=== PATIENT | male | born 1930 | race Caucasian/White ===

== ENCOUNTER 2016-06-21 13:16 | Emergency (ER) | payer MEDICARE, BC ==
[2016-06-21] MEDS ORDERED: SODIUM CHLORIDE 0.9% 1,000 ML IV ONE (16:11)
[2016-06-21] MEDS ORDERED: ACETAMINOPHEN 325 MG TABLET PO STA (16:14)
[2016-06-21] MEDS ORDERED: ACETAMINOPHEN 325 MG TABLET PO ONE (16:47)
[2016-06-21] MEDS ORDERED: KETOROLAC 30 MG/ML VIAL IVP STA (17:53)
[2016-06-21] MEDS ORDERED: AMOXICILLIN 250 MG CAPSULE PO STA (17:53)
[2016-06-21] MEDS ORDERED: AMOXICILLIN 250 MG CAPSULE PO ONE (18:02)
[2016-06-21] MEDS ORDERED: KETOROLAC 30 MG/ML VIAL ONE (18:02)
[2016-06-21] MEDS ORDERED: DEXAMETHASONE 10 MG/ML VIAL PO STA (19:20)
[2016-06-21] MEDS ORDERED: CHERRY SYRUP 10 ML UDC PO ONE (19:24)
[2016-06-21] MEDS ORDERED: DEXAMETHASONE 10 MG/ML VIAL ONE (19:24)
== END 2016-06-21 20:23 | disposition home or self-care (01) ==
DX: J11.1 Influenza due to unidentified influenza virus with other respiratory manifestations (principal)
CPT/HCPCS: 36415; 71020; 80053; 83690; 85025; 87275; 87276; 96374; 99284; A9270

== ENCOUNTER 2016-07-05 15:30 | Outpatient (CLI) | payer MEDICARE, BC | END 2016-07-05 15:31 | disposition home or self-care (01) | DX: F01.51 Vascular dementia, unspecified severity, with behavioral disturbance (principal); R53.83 Other fatigue; R05 Cough; F41.1 Generalized anxiety disorder; J20.9 Acute bronchitis, unspecified; R53.1 Weakness; F43.21 Adjustment disorder with depressed mood; K59.00 Constipation, unspecified; R35.0 Frequency of micturition; Z66 Do not resuscitate; Z51.5 Encounter for palliative care ==

== ENCOUNTER 2016-08-26 11:45 | Outpatient (CLI) | payer MEDICARE, BC | END 2016-08-26 11:46 | disposition home or self-care (01) | DX: F03.91 Unspecified dementia, unspecified severity, with behavioral disturbance (principal); K40.90 Unilateral inguinal hernia, without obstruction or gangrene, not specified as recurrent; B37.9 Candidiasis, unspecified; R35.0 Frequency of micturition; K59.00 Constipation, unspecified; R33.9 Retention of urine, unspecified; E53.9 Vitamin B deficiency, unspecified; G25.9 Extrapyramidal and movement disorder, unspecified; F41.9 Anxiety disorder, unspecified; R53.83 Other fatigue; R06.02 Shortness of breath; R25.1 Tremor, unspecified; Z66 Do not resuscitate; Z51.5 Encounter for palliative care ==

== ENCOUNTER 2016-09-30 11:15 | Outpatient (CLI) | payer MEDICARE, BC | END 2016-09-30 11:16 | disposition home or self-care (01) | DX: Z51.5 Encounter for palliative care (principal); B37.89 Other sites of candidiasis; F03.91 Unspecified dementia, unspecified severity, with behavioral disturbance; F43.21 Adjustment disorder with depressed mood; Z66 Do not resuscitate; H91.90 Unspecified hearing loss, unspecified ear; R05 Cough; E11.9 Type 2 diabetes mellitus without complications; I49.9 Cardiac arrhythmia, unspecified ==

== ENCOUNTER 2016-11-17 16:05 | Outpatient (CLI) | payer MEDICARE, BC | END 2016-11-17 16:06 | disposition home or self-care (01) | DX: R53.82 Chronic fatigue, unspecified (principal); D64.9 Anemia, unspecified; Z79.899 Other long term (current) drug therapy ==

== ENCOUNTER 2017-02-09 14:50 | Outpatient (CLI) | payer MEDICARE, BC ==
--- NOTE | 2017-02-09 21:51 | PROVIDER PROGRESS NOTE ---
Palliative Care Follow Up - Referral Referring Provider: Dr. Charly Stanley Time of Visit: Referral setting: [facility] [place] Referral Reason: Dementia - Information Sources History obtained from: Patient, Family ( Brittany Henry brought patient to visit ) Exam limitations: Clinical condition (patient continues with STM; recall though remains improved) - History of Present Illness Update Brief HPI Update: This is a delightful 86 year old man with colorful history of working in [employer], who has vascular dementia with behavioral disturbances, but has continued to improve. He still has anxiety, some intermittent confusion/STM issues, and perseverating behaviors but is currently managed fairly well on his medication regimen that we have pared back. He still is anxious about voidng and is aware it is "more in his head" and bowels which are moving regularly. They have an upcoming [facility] Cruise with a family reunion which is causing his anxiety to escalate some, but has insight into this. He actually has no recall of the turn of events late winter, but is grateful for his current quality of life. He does continue with balance issues, shuffling gait, and lower extremity weakness but has benefited greatly with physical therapy support. He is up to 166 today from a low of 140, I suspect impacted some by his medications, but appears healthy for as frail as he is with his multiple co-morbidities. Social History - Living Situation Living arrangement: At home (stays with wift Mon-), Other (Adult Family Home Mon-Mon) Living Situation: With spouse/s.o., With caregiver(s) Support System: has patient come home for a few days, does Time Together and able to manage with taking time off during the weekends; patient with supportive family , many visits over the summer Medications/Allergies - Medications Home Medications: Ambulatory Orders Medication Instructions Recorded Confirmed Clonazepam 0.25 mg PO BID 06/21/16 02/09/17 Mirtazapine 15 mg PO QPM 06/21/16 02/09/17 QUEtiapine [SEROquel] 12.5 mg PO QDLUNCH 06/21/16 02/09/17 QUEtiapine [SEROquel] 37.5 mg PO QPM 06/21/16 02/09/17 Tamsulosin [Flomax] 0.4 mg QPM 06/21/16 02/09/17 Cholecalciferol (Vitamin D3) 1,000 unit PO DAILY 02/09/17 02/09/17 [Vitamin D3] Cyanocobalamin (Vitamin B-12) 1,000 mcg IM ONCE 02/09/17 02/09/17 [Cyanocobalamin Injection] Omeprazole 20 mg PO BID 02/09/17 02/09/17 Polyethylene Glycol 3350 [Miralax] 17 gm PO DAILY 02/09/17 02/09/17 Sennosides [Senna Lax] 8.6 mg PO DAILY 02/09/17 02/09/17 - Allergies Allergies/Adverse Reactions: Allergies Allergy/AdvReac Type Severity Reaction Status Date / Time No Known Drug Allergies Allergy Verified 06/21/16 18:51 Review of Systems - Constitutional Constitutional: reports: Fatigue, Weight gain (166.8) - Eyes Eyes: reports: Vision loss, Corrective lenses - Ears, Nose & Throat Ears, Nose & Throat: reports: Hearing loss, Hearing aids, Other (recent tooth extraction) - Cardiovascular Cariovascular: reports: Irregular heart rate, Exertional dyspnea, Decr. exercise tolerance - Respiratory Respiratory: reports: SOB with exertion. denies: Cough - Gastrointestinal Gastrointestinal: reports: Reflux/heartburn. denies: Abdominal pain, Nausea, Vomiting - Genitourinary Genitourinary: reports: Frequency, Urgency (attributes most of it to anxiety; flomax had improved status), Nocturia, Other (has large inguinal hernia that causes discomfort about the size of a grapefruit) - Musculoskeletal Musculoskeletal: reports: Muscle weakness, Other (balance) - Integumentary Integumentary: reports: Other (intermittent rashes in groin secondary to hernia) - Neurological Neurological: reports: General weakness, Memory problems, Abnormal gait - Psychiatric Psychiatric: reports: Anxiety - Endocrine Endocrine: reports: Other (c/o fatigue; labs wnl, hx of DM diet controlled) - Hematologic/Lymphatic Hematologic/Lymphatic: reports: Anemia. denies: Recurrent infections - All Other Systems All Other Systems: reports: Reviewed and negative Physical Examination - Vital Signs Pulse Rate: 83 Respiratory Rate: 18 Blood Pressure: 134/81 - Physical Exam General Appearance: positive: Mild distress, Anxious Eyes Bilateral: positive: Normal inspection ENT: positive: Other (no signs swelling/abcess with tooth extraction) Neck: positive: Trachea midline Respiratory: positive: Breath sounds nml Cardiovascular: positive: Irregularly irregular, Systolic murmur Abdomen: positive: Non-tender, Nml bowel sounds, No distention Skin: positive: Rash (slight moist desquamation in right groin fold), Other ( two small skin tears on left hand, less than cm; had cut self on towel lincoln in bathroom; well cloted.) Extremities: positive: No pedal edema, Other (ambulates with walker; balance poor) Neurologic/Psychiatric: positive: Oriented x3, Other (very anxious; able to follow conversation; STM recall but conversant; no halllucinations; speaks in full sentences;) Palliative Care - POLST Patient has POLST: Yes POLST Status: DNR, Comfort Measures (Focus on quality of life, avoid hospitalization, and avoid unnecessary procedures) Pain: No pain Drowsiness: Mild (1-3) Nausea: Moderate (4-6) (calls it a "quesy stomach" better on omeprazole but related to anxiety) Anxiety: Moderate (4-6) Dyspnea: Mild (1-3) Anorexia: Mild (1-3) Insomnia: Sleeps well Constipation: No Feelings of wellbeing/Perceived Quality of Life: Worsening (dislikes being dependent and "old") Performance Status: Current level of functioning [Needs assistance with bathing, does when home , dependent on others for meal prep/transportation and meeting scheduling needs ; needs cuing for ambulation with walker]. Palliative Care Performance Status [ 60%]. - Palliative Care Discussion: Surrogate decision maker-Brittany Cha spouse [phone]. Patient doing pretty well overall, but has some escalating anxiety with upcoming family trip/ cruise. Remains frail but currently at a plateau. Does very much enjoy his time at home, but Brittany Henry has done nice job of balancing time off with [facility] and George is resigned to this. Patient with many underlying co-morbidities (dementia , CAD, atrial fib, hx of CVA, DM2, asthma, post polio syndrome, spinal stenosis , asthma) that can impact his prognosis, but stable. He recently tolerated a tooth extraction well. POLST in place, goals are clear, current quality of life acceptable but most likely not if decline either physically or cognitively. Impression and Recommendations - Palliative Care Impression: This is a 86 year old gentleman with vascular dementia with behavioral disturbances who is doing fairly well on his current regimen, noted escalation of anxiety with pending trip. Caregiving situation currently stable, and continuing to benefit from physical therapy services. Both patient and aware of frailty of situation, are enjoying current quality of life and trying to make the best of situation. Recommendations/Counseling Done: 1. Skin tear from acute trauma left hand. Two small less than 1 cm area tears, cleansed with normal saline and telph pad applied. 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 on s/s infection to contact PCP or myself. 2. Dementia with behavioral disturbances, current regimen pared back, both satisfied with current level of relief. Patient with some increase in anxiety attributed to change in routine, patient with some insight of this. Counseling for normalizing current feelings of distress and ways to refocus and mitigate. No medication changes needed; medications reviewed with and patient. 3. Difficulty walking, patient with balance issues, post polio syndrome, spinal stenosis and generalized weakness will continue to benefit from weekly PT visit for addressing strengthening and risk for falls. Rx to [facility] to [facility]. 4. Fatigue, multifactorial in origin. B12 shot given without problems. 5. Advanced Care Planning, POLST in place, goals defined. Enjoying current status though less difficult to accept limitations at 86, both aware of fragile status but attempting to take it day at a time. Has trip planned for fall with family reunion. Time Spent: Time spent 45 minutes with greater than 50% done in counseling for anxiety and coordination of care with referral to PT.
== END 2017-02-09 14:51 | disposition home or self-care (01) ==
LOC: PC 14:50
PROVIDERS: ATTEND Nurse Practitioner Adult Health
DX: Z51.5 Encounter for palliative care (principal); S61.412A Laceration without foreign body of left hand, initial encounter; F01.51 Vascular dementia, unspecified severity, with behavioral disturbance; G14 Postpolio syndrome; M48.00 Spinal stenosis, site unspecified; M62.81 Muscle weakness (generalized); R53.83 Other fatigue; F41.9 Anxiety disorder, unspecified; R41.0 Disorientation, unspecified; R26.89 Other abnormalities of gait and mobility; R63.5 Abnormal weight gain; R12 Heartburn; R35.0 Frequency of micturition; R39.15 Urgency of urination; R35.1 Nocturia; D64.9 Anemia, unspecified; R11.0 Nausea; R41.3 Other amnesia; Z66 Do not resuscitate; I25.10 Atherosclerotic heart disease of native coronary artery without angina pectoris; I48.91 Unspecified atrial fibrillation; E11.9 Type 2 diabetes mellitus without complications; J45.909 Unspecified asthma, uncomplicated
CPT/HCPCS: 99215

== ENCOUNTER 2017-05-22 14:00 | Outpatient (CLI) | payer MEDICARE, BC ==
--- NOTE | 2017-05-22 20:32 | CONSULTATION NOTE ---
Palliative Care Follow Up - Referral Referring Provider: Dr. Charly Stanley Time of Visit: [id number] Referral setting: Adult Family Home (It is a taxing and considerable effort for the patient to leave the home, patient is seen in his home setting in adult family home.) Referral Reason: Anxiety/abdominal pain - Information Sources History/Review of Systems obtained from: Patient, Family ( Brittany Henry joined us for visit) Exam limitations: Clinical condition (Patient was short-term memory deficits, ROS supplemented by and adult family home caregiver.) - History of Present Illness Update Brief HPI Update: This is a delightful 86-year-old gentleman with vascular dementia with history of behavioral disturbances. His current neuropsychiatric symptoms include mostly anxiety, negative for aggression, hallucinations, or delusions at this point in time. He is complaining over the last few weeks of increased abdominal pain. This is vague in nature, abdominal exam somewhat nondescript, does have some tenderness with deep palpation across the upper abdomen, no masses felt but there is some firmness and discomfort. This is not persistent, is not worsening are improved with eating. Did switch from ranitidine to omeprazole a couple days ago and has no improvement so far. Nausea appears to be related to anxiety not necessarily on awakening pain. Denies history of ulcers, does report though patient has known positive stools, and has not had a workup. Patient has had no weight loss, his most other pressing symptom of complaint is fatigue, needing to paces activity more, feels weaker when ambulating, is taking more frequent naps. Social History - Living Situation Living arrangement: Adult family home Living Situation: With caregiver(s) Support System: Brittany Henry oversees patient's care. Medications/Allergies - Medications Home Medications: Ambulatory Orders Medication Instructions Recorded Confirmed Mirtazapine 15 mg PO QPM 06/21/16 05/22/17 QUEtiapine [SEROquel] 25 mg PO QPM 06/21/16 05/22/17 Tamsulosin [Flomax] 0.4 mg QPM 06/21/16 05/22/17 clonazePAM [Clonazepam] 0.25 mg PO DAILY PM 06/21/16 05/22/17 Cholecalciferol (Vitamin D3) 1,000 unit PO DAILY 02/09/17 05/22/17 [Vitamin D3] Cyanocobalamin (Vitamin B-12) 1,000 mcg IM ONCE 02/09/17 05/22/17 [Cyanocobalamin Injection] Polyethylene Glycol 3350 [Miralax] 8.5 gm PO DAILY 02/09/17 05/22/17 Omeprazole [PriLOSEC] 20 mg PO BID 05/22/17 05/22/17 - Allergies Allergies/Adverse Reactions: Allergies Allergy/AdvReac Type Severity Reaction Status Date / Time No Known Drug Allergies Allergy Verified 06/21/16 18:51 Review of Systems - Constitutional Constitutional: reports: Fatigue (worsening; tired all the time), Weight stable (166) - Eyes Eyes: reports: Vision loss, Corrective lenses - Ears, Nose & Throat Ears, Nose & Throat: reports: Hearing loss, Dental decay (dental work) - Cardiovascular Cardiovascular: reports: Irregular heart rate. denies: Palpitations, Chest pain , Decr. exercise tolerance - Respiratory Respiratory: reports: SOB with exertion. denies: Cough, SOB at rest - Gastrointestinal Gastrointestinal: reports: Abdominal pain (worsening; difficult to discern if on awakening or when anxiety "kicks" in; report abdominal pain across abdomen; denies "heartburn" or chest pain; no worse with eats or empty stomach; does not have pain that awakends at night), Nausea (on awakening; no vomiting or dry heaves; consistent for over a month; started omeprazole vs ranitidine Monday without improvement yet), Good appetite - Genitourinary Genitourinary: reports: Frequency, Urgency, Other (feels emptying bladder; able to sleep through most the night without getting up most nights; anxious through the day and constantly in bathroom; aware "fixates") - Musculoskeletal Musculoskeletal: reports: Muscle weakness, Assistive devices (uses front wheeled walker; PT one time a week; has started peddlar) - Integumentary Integumentary: reports: Dryness, Other (groin rash) - Neurological Neurological: reports: General weakness, Memory problems (STM; talks in full sentences; difficulty following more complex conversations; able to do social conversation) - Psychiatric Psychiatric: reports: Depression (sadness at current situation; worries about and misses ), Anxiety (Patient gets perseverated particular around urinating and bowels, reports this is been life long pattern that has been intensified with recent health decline and memory problems. Reports just feels shaky and unsteady in side, can be redirected and distracted. Does not awaken confused) - Endocrine Endocrine: reports: Diabetes type 2 (recent labs show no s/s of poor control), Intolerance to cold - Hematologic/Lymphatic Hematologic/Lymphatic: reports: Anemia (Known "slow leak" with past positive stool cards. Agreement and past was made not to work it up secondary to patient most likely unable to tolerate surgery.). denies: Recurrent infections - All Other Systems All Other Systems: reports: Reviewed and negative Physical Exam - Vital Signs Temperature: 97.7 C Pulse Rate: 95 Respiratory Rate: 18 O2 Saturation: 95 (ra @ rest) Blood Pressure: 112/72 - Physical Exam General Appearance: positive: Mild distress, Anxious Eyes Bilateral: positive: Normal inspection ENT: positive: Pharynx nml, No signs of dehydration Neck: positive: No JVD, Trachea midline Cardiovascular: positive: Irregular Respiratory: positive: Breath sounds nml Abdomen: positive: Soft, Nml bowel sounds, Tenderness (Patient with tenderness to deep palpation in right upper and left upper quadrant. No guarding or rebound tenderness, some firmness but no mass felt. Patient does have a significant inguinal hernia hangs down about the size of small melon. Is uncomfortable for him and does cause some skin problems in his groin.) Skin: positive: Pallor, Dryness, Rash (right groin area) Extremities: positive: No pedal edema Neurologic/Psychiatric: positive: Oriented x3, Depressed mood/affect Palliative Care - POLST Patient has POLST: Yes POLST Status: DNR, Comfort Measures Pain: Pain worsening, Location (upper abdominal pain; intermittent in pattern, worse in am on awakening accompanied by nausea and anxiety) Tiredness/Fatigue: Moderate (4-6) (feels worsening though denies dizzyness; headache; or increase in the baseline shortness of breath with activity) Drowsiness/Sedation: None Nausea: Mild (1-3) Depression: Mild (1-3) Anxiety: Moderate (4-6) Anorexia: None Sleep: Variable sleep pattern Constipation: Yes, Managed (currently managed wtih miralax 1/2 capful daily) Feelings of wellbeing/Perceived Quality of Life: Fair, Acceptable Performance Status: Patient does need assistance with bathing, for safety as well as assistance. Is using his 4 wheeled walker to ambulate around adult family home. Meals are prepared for him, is able to self feed. He is able to make his needs known. Does have increased fatigue and decreased activity tolerance. I would put him at a palliative care performance status at 60% - Palliative Care Discussion: Much of our discussion today as far as goals of care and quality of life were focused on his increased distress with his abdominal pain and anxiety. Both patient and aware of his fragile status, at this point would like to start with conservative measures. Impression and Recommendations - Palliative Care Impression: This is an 86-year-old gentleman with multiple comorbidities and status of frailty. He does present today with increasing abdominal pain and symptoms, though not specific in nature, and without acute distress. Patient also continues to struggle with anxiety, depressive symptoms, and fatigue.Goals of care remain to focus on conservative measures as possible, patient has done quite well given his health status over a year ago, the are both aware he is still fragile and at risk for further health changes and complications. Recommendations/Counseling Done: 1. Fatigue, most likely multifactorial in origin. Will obtain CBC with differential to measure current status. Vitamin B12 shot was given today. Will decrease Seroquel secondary to behavioral disturbances symptoms have improved greatly, will watch though for increased signs of anxiety or sundowners. Seroquel now at 25 mg at at bedtime only. 2. Abdominal pain. Difficult to discern if this is GERD symptoms are related to his anxiety. Did switch from ranitidine and 50 mg twice daily to omeprazole 20 mg twice daily, somewhat too soon to see if this is going to be effective. Discussion both with patient and regarding referral for endoscopy or further workup, would like to try conservative measures first. Bowels are moving on a regular basis, is taking bowel meds consistently, is more upper abdominal than substernal in nature. 3. Anxiety, again multifactorial in origin. Currently only taking the clonazepam half tablet at bedtime. This does appear to be adequate along with his mirtazapine 15 mg. He does have depressive symptoms, but can relate these to his situational depression, does enjoy his visits with his and going out to lunch and distractions. Will evaluate response to decreased Seroquel as well. 4. Dementia with behavioral disturbances. Patient does appear to be doing much better as far as any neuropsychiatric symptoms, though he is short-term memory issues no further hallucinations delusions or wandering and her agitation. 5. Advanced care planning. In weighing further workup for abdominal pain and symptoms, agreement to start with conservative approach, knowing can if have any acute changes are would like for the referral this is an option. MAK ST in place, goals of care remain continue to focus on comfort and maximizing independence as much as possible. Time Spent: Time spent 45 minutes with good 50% of this done in counseling weighing benefits and burdens of further follow-up and approach to workup with abdominal pain, counseling for depression anxiety, and anticipatory guidance
== END 2017-05-22 14:01 | disposition home or self-care (01) ==
LOC: PC 14:00
PROVIDERS: ATTEND Nurse Practitioner Adult Health
DX: Z51.5 Encounter for palliative care (principal); R10.9 Unspecified abdominal pain; F41.9 Anxiety disorder, unspecified; F01.51 Vascular dementia, unspecified severity, with behavioral disturbance; F32.9 Major depressive disorder, single episode, unspecified; R11.0 Nausea; R06.09 Other forms of dyspnea; M62.81 Muscle weakness (generalized); E11.9 Type 2 diabetes mellitus without complications; Z66 Do not resuscitate

== ENCOUNTER 2017-05-23 14:21 | Outpatient (CLI) | payer MEDICARE, BC ==
[2017-05-23 17:39] LABS: BASOPHILS % (AUTO) 0.8 %; EOSINOPHILS # (AUTO) 0.1 10^3/uL (0.0-0.7); EOSINOPHILS % (AUTO) 1.7 %; HCT - HEMATOCRIT 48.1 % (42.0-52.0); HGB - HEMOGLOBIN 15.9 g/dL (14.0-18.0); LYMPHOCYTES # (AUTO) 1.1 10^3/uL (1.5-3.5); LYMPHOCYTES % (AUTO) 16.7 %; MEAN CORPUSCULAR HEMOGLOBIN 31.8 pg (27.0-31.0); MEAN CORPUSCULAR HGB CONC 33.1 g/dL (32.0-36.0); MEAN CORPUSCULAR VOLUME 96.1 fL (80.0-94.0); MEAN PLATELET VOLUME 8.5 fL (7.4-11.4); MONOCYTES # (AUTO) 0.5 10^3/uL (0.0-1.0); NEUTROPHILS # (AUTO) 4.7 10^3/uL (1.5-6.6); NEUTROPHILS % (AUTO) 72.8 %; NUCLEATED RED BLOOD CELLS AUTO 0.1 /100WBC; RED BLOOD COUNT 5.01 10^6/uL (4.70-6.10); RED CELL DISTRIBUTION WIDTH 13.7 % (12.0-15.0); UNCORRECTED WHITE BLOOD COUNT 6.4 x10^3/uL; WHITE BLOOD COUNT 6.4 x10^3/uL (4.8-10.8)
== END 2017-05-23 14:22 | disposition home or self-care (01) ==
LOC: LAB.F 14:21
PROVIDERS: ATTEND Nurse Practitioner Adult Health
DX: D64.9 Anemia, unspecified (principal)
CPT/HCPCS: 36415; 85025

== ENCOUNTER 2017-06-26 17:42 | Outpatient (CLI) | payer MEDICARE, BC ==
--- NOTE | 2017-06-26 18:24 | CONSULTATION NOTE ---
Palliative Care Follow Up - Referral Referring Provider: Dr. Charly Stanley Time of Visit: 5794-8117 Referral setting: Adult Family Home Referral Reason: Anxiety/Depression - Information Sources History/Review of Systems obtained from: Patient, Caregiver (Awilda caregiver, [facility]) Exam limitations: Clinical condition (patient with short term memory issues; high anxiety with out of town) - History of Present Illness Update Brief HPI Update: This is an anxious 86-year-old gentleman with vascular dementia and history of behavioral disturbances. He has felt poorly over the last month with increased nausea without vomiting, increased anxiety that gets translated into his perseverating on frequently going back and forth to the bathroom, he denies any difficulty emptying his bladder or urgency or dysuria. He is just always worried that he is not going to get there. He does admit this is "all in his head. He feels the abdominal discomfort which is a band across his upper abdomen is related to his anxiety, we have much switched up his medications omeprazole twice daily though has not made much difference. His bowels are moving without difficulty. His anxiety currently is escalated as his is out of town for 2 weeks he has felt more weak, though is still able to ambulate short distances. He does have upper extremity tremors these fluctuate in intensity increasing with anxiety. He can be easily redirected and distracted and able to converse in full sentences. He only presents with short-term memory at this point in time. He has had no weight loss I do not have an accurate current weight. I did do labs his last visit, and there were no unusual or concerning findings. Social History - Living Situation Living arrangement: Adult family home Support System: His Brittany Henry provides oversight for his medical care as well as significant amount of visiting and psychosocial support. She does try to arrange activities and things that would be distracting for patient, so as he has had increased fatigue this is been more difficult Medications/Allergies - Medications Home Medications: Ambulatory Orders Medication Instructions Recorded Confirmed Mirtazapine 22.5 mg PO QPM 06/21/16 06/26/17 QUEtiapine [SEROquel] 25 mg PO QPM 06/21/16 06/26/17 Tamsulosin [Flomax] 0.4 mg QPM 06/21/16 06/26/17 clonazePAM [Clonazepam] 0.25 mg PO 12 06/21/16 06/26/17 Cholecalciferol (Vitamin D3) 1,000 unit PO DAILY 02/09/17 06/26/17 [Vitamin D3] Cyanocobalamin (Vitamin B-12) 1,000 mcg IM ONCE 02/09/17 06/26/17 [Cyanocobalamin Injection] Polyethylene Glycol 3350 [Miralax] 8.5 gm PO DAILY 02/09/17 06/26/17 Omeprazole [PriLOSEC] 20 mg PO BID 05/22/17 06/26/17 Ondansetron HCl [Zofran] 4 mg PO Q8HR PRN 06/26/17 06/26/17 clonazePAM [Clonazepam] 0.5 mg PO 2100 06/26/17 06/26/17 - Allergies Allergies/Adverse Reactions: Allergies Allergy/AdvReac Type Severity Reaction Status Date / Time No Known Drug Allergies Allergy Verified 06/21/16 18:51 Review of Systems - Constitutional Constitutional: reports: Fatigue, Weight stable - Eyes Eyes: reports: Vision loss, Corrective lenses - Ears, Nose & Throat Ears, Nose & Throat: reports: Hearing loss, Dry mouth - Cardiovascular Cardiovascular: reports: Irregular heart rate, Decr. exercise tolerance. denies : Chest pain - Respiratory Respiratory: reports: SOB with exertion - Gastrointestinal Gastrointestinal: reports: Abdominal pain, Nausea, Good appetite. denies: Vomiting - Genitourinary Genitourinary: reports: Frequency, Urgency - Musculoskeletal Musculoskeletal: reports: Back pain (new but spending more time in bed), Stiffness, Muscle weakness, Assistive devices (uses four wheeled walker) - Integumentary Integumentary: reports: Rash (right groin), Dryness - Neurological Neurological: reports: General weakness, Memory problems - Psychiatric Psychiatric: reports: Depression, Anxiety (worsening with gone; describes anxiety focused on needing to use the bathroom "not rationale" but exacerbates upper abdominal discomfort and causes nausea though eats and no vomiting), Behavior disturbances - Endocrine Endocrine: reports: Diabetes type 2 - Hematologic/Lymphatic Hematologic/Lymphatic: denies: Recurrent infections - All Other Systems All Other Systems: reports: Reviewed and negative Physical Exam - Vital Signs Temperature: 98.3 C Pulse Rate: 72 Respiratory Rate: 18 O2 Saturation: 94 (ra @ rest) Blood Pressure: 108/64 - Physical Exam General Appearance: positive: Moderate distress, Anxious Eyes Bilateral: positive: Normal inspection ENT: positive: No signs of dehydration Neck: positive: No JVD, Trachea midline Cardiovascular: positive: Irregular Respiratory: positive: Breath sounds nml Abdomen: positive: Non-tender, Soft, Nml bowel sounds Skin: positive: Pallor, Dryness Extremities: positive: No pedal edema, Other (upper extremity tremors right greater than left) Neurologic/Psychiatric: positive: Disoriented to time, Depressed mood/affect Palliative Care - POLST Patient has POLST: Yes POLST Status: DNR, Comfort Measures Pain: Location (abdominal pain "band across" upper abdomen flucutates- attributes to worsening with anxiety; CG observes worse with some foods; new back pain has been in bed more but tolerable) Tiredness/Fatigue: Moderate (4-6) Drowsiness/Sedation: Mild (1-3) Nausea: Moderate (4-6) (no vomiting) Depression: Moderate (4-6) (reports tearful and feels worsening; attributes to "aging" and not accepting of his decline) Anxiety: Severe (7-10) Dyspnea: Mild (1-3) Anorexia: None Sleep: Variable sleep pattern (Reports perseverates about falling asleep, gets distressed if he awakens though does feel like he gets an adequate number of hours. He worries about needing to go to the bathroom when he is sleeping and gets up often quickly out of bed, is using walker) Constipation: Yes, Managed Feelings of wellbeing/Perceived Quality of Life: Poor, Worsening Performance Status: Patient does require assistance with dressing, he is able to self-feed though he is somewhat tremulous and needs some assistance with cutting his food. He does receive assistance with bathing. He can ambulate short distances with his walker though does need assistance sometimes from getting out of bed to standing. I put him at a palliative care performance status between 40 and 50% - Palliative Care Discussion: Patient has lived a long and colorful life, he does miss being younger and vibrant. He is very "disgusted" with being dependent, he does worry about being a burden to Brittany Henry. He worries constantly that she is going to before him, though reassured with her younger age and she is taking care of herself the this is most likely not true. He is very anxious with her currently gone on the trip. She does call every day. Is hoping one day he just does not wake up, he is not looking forward to "the dying process". He does get bored stiff. He has somewhat resigned to the current arrangement, knowing that Brittany Henry needs to take care of herself as well. Results - Lab Results Lab results reviewed: Yes Impression and Recommendations - Palliative Care Impression: This is an 86-year-old gentleman with multiple core morbidities and fragility of advanced age. He presents with high anxiety exacerbated by his currently being on a trip. He continues to have increased abdominal pain and discomfort though not acute in nature, not worsening or improving. Goals of care remain to focus on conservative measures, and continue to weigh the benefits and burdens of any further interventions. Recommendations/Counseling Done: 1. Fatigue most likely multifactorial in origin. No anemia worsening with previous CBC, vitamin B12 shot was given today. Seroquel was decreased so has not noticed any changes with this. Encouraged to return to activities as tolerated, I suspect some of this is attributed to his isolation and ongoing anxiety as well as his advancing age. 2 abdominal pain. Continues to remain somewhat ambiguous. Discussed with patient next step would be follow-up with his surgeon, possible scope. He reports that is more anxiety producing and then would be of benefit. Does have intermittent nausea with this, reports has used ondansetron in the past without any help but willing to try again for when it escalates. Particularly in the adult family home setting for a tool to use with patient. Will also look at diet modifications including discontinuing trial mix at bedtime, encouraged to use more easily digestible things like saltines R Ritz crackers at bedside as well as cooked applesauce versus fresh apples right before he goes to bed. 3. Depression. Will go ahead and try try dictating up his mirtazapine 15 mg to 1 and half tabs at bedtime to see if this helps both with his anxiety and depressive symptoms. Counseling done to normalize his normal feelings of grief and loss given his advanced age and multiple losses. 4. Dementia with behavioral disturbances. Patient does appear doing much better as far as his neuropsychiatric symptoms of his anxiety has exacerbated. Had added back half tab of clonazepam 0.5 mg mid day during this time that his is gone, unclear if this is of benefit. #5 advanced care planning. MAK ST in place goals of care remain to continue focus on comfort and maximizing independence for as long as possible. At this point in time no further workup is requested, and continue to weigh benefits and burdens of interventions or assessment measures. Time Spent: 45 minutes with greater than 50% of this done in counseling and coordination of care with adult family home zipper machine operator as well as follow-up in with who is traveling. Medication ordered ondansetron 4 mg 1 tab every 8 hours as needed as well as increasing bedtime mirtazapine to 1-1/2 tabs which would be 22.5 mg
== END 2017-06-26 17:43 | disposition home or self-care (01) ==
LOC: PC 17:42
PROVIDERS: ATTEND Nurse Practitioner Adult Health
DX: Z51.5 Encounter for palliative care (principal); R53.83 Other fatigue; R10.9 Unspecified abdominal pain; F32.9 Major depressive disorder, single episode, unspecified; F01.51 Vascular dementia, unspecified severity, with behavioral disturbance; F41.9 Anxiety disorder, unspecified; M62.81 Muscle weakness (generalized); E11.9 Type 2 diabetes mellitus without complications; Z66 Do not resuscitate

== ENCOUNTER 2017-08-07 14:00 | Outpatient (CLI) | payer MEDICARE, BC ==
--- NOTE | 2017-08-07 18:23 | CONSULTATION NOTE ---
Palliative Care Follow Up - Referral Referring Provider: Dr. Charly Stanley Time of Visit: 5968-4568 Referral setting: Adult Family Home Referral Reason: Bronchitis - Information Sources Records reviewed: Previous records reviewed History/Review of Systems obtained from: Patient, Family (Brittany Henry not at visit, but did provide information per phone; son Charly present for visit) Exam limitations: Clinical condition (STM issues) - History of Present Illness Update Brief HPI Update: This is an anxious 86-year-old gentleman with vascular dementia and a history of behavioral disturbances, he actually presents with only moderate neuro cognitive decline. He has had symptoms originally of a viral illness on 07/11, for which he was symptomatically treated and slowly improved. He then had an exacerbation, with severe cough, elevated temperature, and significant fatigue. This was on 08/02, in discussion with on weighing benefits and burdens of further workup, agreement was to go ahead and treat, he did complete a Z-Dionicio, with improvement of symptoms. Am seeing him today in follow-up, he is afebrile , his breath sounds are diminished in the bases, but no rales rhonchi or crackles. His O2 sats are 94%. His cough is dry and minimized at this point. His only residual symptom is his perception of fairly significant fatigue. But he is able to walk back and forth to the bathroom, is eating and drinking his normal amounts, and appears to be recovering. His herself, is feeling poorly, and this increases his anxiety significantly. He does worry about her, and if something were to happen to her, what would happen to him. Social History - Living Situation Living arrangement: Adult family home Support System: Brittany Henry oversees patient's medical care, arranges for several activities including time together, and PT appointments. These are currently on hold until he is recovered from his bronchitis. Medications/Allergies - Medications Home Medications: Ambulatory Orders Medication Instructions Recorded Confirmed Mirtazapine 22.5 mg PO QPM 06/21/08/07/17 QUEtiapine [SEROquel] 25 mg PO QPM 06/21/16 08/07/17 Tamsulosin [Flomax] 0.4 mg QPM 06/21/16 08/07/17 clonazePAM [Clonazepam] 0.25 mg PO 12 06/21/16 08/07/17 Cholecalciferol (Vitamin D3) 1,000 unit PO DAILY 02/09/17 08/07/17 [Vitamin D3] Cyanocobalamin (Vitamin B-12) 1,000 mcg IM ONCE 02/09/17 08/07/17 [Cyanocobalamin Injection] Polyethylene Glycol 3350 [Miralax] 8.5 gm PO DAILY 02/09/17 08/07/17 Omeprazole [PriLOSEC] 20 mg PO BID 05/22/17 08/07/17 Ondansetron HCl [Zofran] 4 mg PO Q8HR PRN 06/26/17 08/07/17 clonazePAM [Clonazepam] 0.5 mg PO 2100 06/26/17 08/07/17 Nystatin [Nystop] 1 applic TOP DAILY 08/07/17 08/07/17 - Allergies Allergies/Adverse Reactions: Allergies Allergy/AdvReac Type Severity Reaction Status Date / Time No Known Drug Allergies Allergy Verified 06/21/16 18:51 Review of Systems - Constitutional Constitutional: reports: Fatigue (reports has continued; most problematic), Weakness. denies: Fever, Night sweats - Eyes Eyes: reports: Vision loss, Corrective lenses - Ears, Nose & Throat Ears, Nose & Throat: reports: Hearing loss, Dental pain (recent root canal still bothersome) - Cardiovascular Cardiovascular: reports: Irregular heart rate, Decr. exercise tolerance - Respiratory Respiratory: reports: Cough (dry and improved), SOB with exertion - Gastrointestinal Gastrointestinal: reports: Good appetite. denies: Nausea, Reflux/heartburn - Genitourinary Genitourinary: reports: Frequency, Urgency - Musculoskeletal Musculoskeletal: reports: Stiffness, Muscle weakness, Assistive devices (uses walker) - Integumentary Integumentary: reports: Rash (right groin; large inguinal hernia "rubs"), Dryness - Neurological Neurological: reports: General weakness, Memory problems (STM) - Psychiatric Psychiatric: reports: Depression (reports improved), Anxiety. denies: Aggitation, Behavior disturbances - Endocrine Endocrine: reports: Diabetes type 2 (controlled with diet) - Hematologic/Lymphatic Hematologic/Lymphatic: reports: Recurrent infections (recent bronchitis) - All Other Systems All Other Systems: reports: Reviewed and negative Physical Exam - Vital Signs Temperature: 98.7 C Pulse Rate: 72 Respiratory Rate: 18 O2 Saturation: 94 (ra @ rest) Blood Pressure: 122/74 - Physical Exam General Appearance: positive: No acute distress, Anxious Eyes Bilateral: positive: Normal inspection ENT: positive: No signs of dehydration Neck: positive: No JVD, Trachea midline Cardiovascular: positive: Irregular, Systolic murmur Respiratory: positive: Diminished in bases (right lower lobe). negative: Wheezes, Rales, Rhonchi Abdomen: positive: Non-tender, Soft, Nml bowel sounds Skin: positive: Rash (moist desquamation and redness in groin folds; large inguinal hernia rubs to right) Extremities: positive: No pedal edema Neurologic/Psychiatric: positive: Oriented x3, Mood/affect nml Palliative Care - POLST Patient has POLST: Yes POLST Status: DNR, Comfort Measures Pain: Pain unchanged, Location (some lower back discomfort; intermittent and no change) Tiredness/Fatigue: Severe (7-10) Drowsiness/Sedation: Mild (1-3) Nausea: None Depression: Mild (1-3) Anxiety: Moderate (4-6) (very anxious about 's recent health issues;) Dyspnea: Mild (1-3) Anorexia: None Sleep: Sleeps well, Sleep improved Constipation: Managed (worries about it constantly) Feelings of wellbeing/Perceived Quality of Life: Good, Acceptable Performance Status: Patient reports increased fatigue, is able to walk back and forth to the bathroom, still needs assistance with bathing, dressing, and oversight for safety. - Palliative Care Discussion: Discussion focused on the normal course of recovery from his current illness, addressing his concerns regarding his anxiety about his , and reassurance given. Patient does have depressive symptoms regarding his current health status, and separation from his , he is enjoying his visit from his son Charly , who comes infrequently but does visit from [place]. Information provided to son regarding palliative care services and goals of care Impression and Recommendations - Palliative Care Impression: This is an 86-year-old gentleman with multiple comorbidities and the fragility of advanced age, with recent viral illness that progressed into bronchitis. He currently is improving, does not present with any acute symptoms of concern, continues to struggle with anxiety but reports depressive symptoms have improved. Goals of care remain to focus on conservative measures, and continue to weigh benefits and burdens as problems present themselves. Recommendations/Counseling Done: 1. Bronchitis. Patient does appear to have good response to azithromycin, he finished his last dose yesterday. Encouraged increase fluid intake, and pacing himself as recovers from fatigue. Counseling regarding normal course of recovery secondary to patient's anxiety, patient reports he does understand and understands he needs to be "patient". 2. Depression. Patient does appear to respond to the increase in mirtazapine, he is feeling less depressive feelings, his anxiety is exacerbated by his ' s recent illness, but overall notes improvement. 3. Fatigue, again most likely multifactorial in origin. Vitamin B12 shot was given today. Encouraged to return to normal activities in 2-3 weeks but pace self slowly. 4. Dementia with behavioral disturbances. Patient only presents with anxiety no other neuropsychiatric symptoms. No medication adjustments needed. 5. Advanced care planning. MAK ST remains in place, goals of care remain to continue focus on comfort and maximizing independence as long as possible. Counseling to son regarding palliative care support. 6. Candidiasis in groin folds. Instructed caregivers to reinitiate Nystop powder to areas of moist desquamation. Thank you Dr. Stanley for asking the palliative care consult service to be involved in the care of your patient will continue to provide support in response to symptoms and concerns as they present themselves. Time Spent: 45 minutes with greater than 50% of this done in counseling and coordination of care with adult family home, follow-up regarding bronchitis, and evaluation of response to increase antidepressant
== END 2017-08-07 14:01 | disposition home or self-care (01) ==
LOC: PC 14:00
PROVIDERS: ATTEND Nurse Practitioner Adult Health
DX: Z51.5 Encounter for palliative care (principal); J40 Bronchitis, not specified as acute or chronic; F32.9 Major depressive disorder, single episode, unspecified; R53.83 Other fatigue; F01.51 Vascular dementia, unspecified severity, with behavioral disturbance; B37.2 Candidiasis of skin and nail; M62.81 Muscle weakness (generalized); F41.9 Anxiety disorder, unspecified; E11.9 Type 2 diabetes mellitus without complications; M54.5 Low back pain; Z66 Do not resuscitate

== ENCOUNTER 2017-10-04 14:56 | Outpatient (CLI) | payer MEDICARE, BC ==
--- NOTE | 2017-10-04 17:35 | CONSULTATION NOTE ---
Palliative Care Follow Up - Referral Referring Provider: Dr. Charly Stanley Time of Visit: [id number] Referral setting: [facility] – [place] Referral Reason: Fatigue/General Anxiety Disorder - Information Sources Records reviewed: Previous records reviewed History/Review of Systems obtained from: Patient, Family ( Brittany Henry present for visit) Exam limitations: Clinical condition (patient anxious; STM issues) - History of Present Illness Update Brief HPI Update: Is an anxious 87-year-old gentleman with vascular dementia, with a history of behavioral disturbances, his most significant impactful neuropsychiatric behavior is his ongoing anxiety, and perseveration on needing to void. He has had continued general decline, most of this is with functional, is actually improved cognitively. Is demonstrated most with activity tolerance, needing more frequent rest periods, but is tolerable. He does need assistance with most ADLs, but is ambulatory with his walker. Has had no falls, no infections since bronchitis in July, and no weight loss. Social History - Living Situation Living arrangement: Adult family home Support System: His Brittany Henry oversees his care, continues to provide activities as well as support to break up his routine, and decrease his isolation. Remains at [facility] Medications/Allergies - Medications Home Medications: Ambulatory Orders Medication Instructions Recorded Confirmed Mirtazapine 22.5 mg PO QPM 06/21/16 10/04/17 QUEtiapine [SEROquel] 25 mg PO QPM 06/21/16 10/04/17 Tamsulosin [Flomax] 0.4 mg QPM 06/21/16 10/04/17 clonazePAM [Clonazepam] 0.25 mg PO 12 06/21/16 10/04/17 Cholecalciferol (Vitamin D3) 1,000 unit PO DAILY 02/09/17 10/04/17 [Vitamin D3] Cyanocobalamin (Vitamin B-12) 1,000 mcg IM .MONTHLY 02/09/17 10/04/17 [Cyanocobalamin Injection] Polyethylene Glycol 3350 [Miralax] 8.5 gm PO DAILY 02/09/17 10/04/17 Ondansetron HCl [Zofran] 4 mg PO Q8HR PRN 06/26/17 10/04/17 clonazePAM [Clonazepam] 0.5 mg PO 2100 06/26/17 10/04/17 Nystatin [Nystop] 1 applic TOP DAILY 08/07/17 10/04/17 - Allergies Allergies/Adverse Reactions: Allergies Allergy/AdvReac Type Severity Reaction Status Date / Time No Known Drug Allergies Allergy Verified 06/21/16 18:51 Review of Systems - Constitutional Constitutional: reports: Fatigue, Weakness, Weight stable (162.1) - Eyes Eyes: reports: Vision loss, Corrective lenses - Ears, Nose & Throat Ears, Nose & Throat: reports: Hearing loss (mild) - Cardiovascular Cardiovascular: reports: Irregular heart rate, Exertional dyspnea, Decr. exercise tolerance - Respiratory Respiratory: reports: SOB with exertion. denies: Cough, SOB at rest - Gastrointestinal Gastrointestinal: reports: Abdominal pain (intermittent, discontinue PPI not helping; intermittent ondansetron relieve nausea feeling), Nausea, Good appetite. denies: Vomiting, Reflux/heartburn - Genitourinary Genitourinary: reports: Frequency, Urgency (continues to feel it is "in his head " up frequently but feels emptying bladder; has perseverated for many years) - Musculoskeletal Musculoskeletal: reports: Muscle weakness (back to PT) - Integumentary Integumentary: reports: Rash (Patient with significant hernia, reports rubbing and discomfort in groin folds.), Dryness - Neurological Neurological: reports: General weakness, Memory problems, Other (increased upper extremity tremors) - Psychiatric Psychiatric: reports: Depression (improved), Anxiety. denies: Delusions, Hallucinations - Endocrine Endocrine: reports: Intolerance to cold - Hematologic/Lymphatic Hematologic/Lymphatic: reports: Recurrent infections (last treated for bronchitis Jul.) - All Other Systems All Other Systems: reports: Reviewed and negative Physical Exam - Vital Signs Temperature: 97.8 C Pulse Rate: 45 Respiratory Rate: 18 Blood Pressure: 127/68 - Physical Exam General Appearance: positive: Alert, Anxious Eyes Bilateral: positive: Normal inspection, Other (mild periorbital edema) ENT: positive: No signs of dehydration Neck: positive: No JVD, Trachea midline Cardiovascular: positive: Irregular, Diastolic murmur Respiratory: positive: Breath sounds nml Abdomen: positive: Soft, Nml bowel sounds Skin: positive: Rash (groin folds reddened) Extremities: positive: No pedal edema Neurologic/Psychiatric: positive: Disoriented to time, Depressed mood/affect Palliative Care - POLST Patient has POLST: Yes POLST Status: DNR, Comfort Measures Pain: No pain Tiredness/Fatigue: Severe (7-10) Drowsiness/Sedation: Mild (1-3) Nausea: Mild (1-3) (intermittent) Depression: Moderate (4-6) Anxiety: Severe (7-10) Dyspnea: Mild (1-3) Anorexia: Mild (1-3) Sleep: Sleeps poorly (up frequently to void; feels it's all in his head) Constipation: No Feelings of wellbeing/Perceived Quality of Life: Fair, Acceptable Performance Status: Patient's balance is improved, does use walker though for longer distances particularly around adult family home. Has not had any falls. Does need bathing assist, and assistance with dressing. Would put him at a PPS of 70% - Palliative Care Discussion: Patient is showing slow decline with decrease in functional status decreased activity tolerance, sleeping somewhat more. Is still finding pleasure in reading, spending time with his , watching movies and listening continues. The context of further follow-up in workup, again the goal is to minimize any intervention, avoid hospitalization, not prolong suffering. And just focus on day-to-day quality of life. Impression and Recommendations - Palliative Care Impression: This is a zac anxious 87-year-old gentleman who continues to struggle with symptoms of advanced age, and functional decline. Patient without acute symptoms that are impacting his quality of life, he does have underlying anxiety , but both he and his are satisfied with his current medication regimen requesting no changes. Again goals of care remain to focus on conservative measures, and continue to weigh benefits and burdens as problems present themselves. Palliative care to continue to provide support and anticipatory guidance and transition to hospice when appropriate Recommendations/Counseling Done: 1. Fatigue. Suspect this is multifactorial in origin. Vitamin B12 shot was given today. Has reinitiated PT, just once a week, encouraged to continue to maintain activities as best as possible. Discussed with , patient's symptoms likely also to be impacted by his cardiac status, does not want to pursue follow-up with chemistry manager, but is aware that this is an option. 2. Anxiety. 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 They are doing some medication as far as providing urinals at bedside, so he does not have to get up but is up frequently through the night. Denies dysuria, does feel like he is emptying bladder, but is an area of focus. reports when distracted patient can go for long periods. 3. Dementia with behavioral disturbances. Patient only presents with anxiety, is presenting much clearer cognitively, and engaging and activities that bring him pleasure. We discussed weighing benefits and burdens of decreasing meds to evaluate effect on fatigue, or increasing anxiety meds, both benefits and burdens. At this point in time no medication adjustments were made. 4. Advanced care planning. MAK ST remains in place, goals of care are clear to continue to focus on comfort and maximizing independence as long as possible. #5 rash in groin folds. Does appear somewhat mechanical in nature, some erythema can use the Nystop, but also encouraged to use balm powder when going out to decrease chafing. Time Spent: 30 minutes with greater than 50% of this done in counseling reviewing plan of care, anticipatory guidance, B12 shot given.
== END 2017-10-04 14:57 | disposition home or self-care (01) ==
LOC: PC 14:56
PROVIDERS: ATTEND Nurse Practitioner Adult Health
DX: Z51.5 Encounter for palliative care (principal); R53.83 Other fatigue; F41.9 Anxiety disorder, unspecified; F03.91 Unspecified dementia, unspecified severity, with behavioral disturbance; R54 Age-related physical debility; M62.81 Muscle weakness (generalized); F32.9 Major depressive disorder, single episode, unspecified; Z66 Do not resuscitate
CPT/HCPCS: 99214

== ENCOUNTER 2017-11-29 15:26 | Outpatient (CLI) | payer MEDICARE, BC ==
--- NOTE | 2017-11-29 21:45 | CONSULTATION NOTE ---
Palliative Care Follow Up - Referral Referring Provider: Dr. Charly Stanley Time of Visit: [phone] [place] [facility] [place] Reason: Fatigue/SHARLENE - Information Sources Records reviewed: Previous records reviewed History/Review of Systems obtained from: Patient, Family ( Brittany Henry providing most of the history) Exam limitations: Clinical condition (patient with severe STM deficits;poor recall or abililty to report symptoms) - History of Present Illness Update Brief HPI Update: This is an anxious 87-year-old gentleman with vascular dementia, with a history of behavioral disturbances, his most significant neuropsychiatric behavior is his ongoing anxiety and his perseveration on the need to frequently void. He is having more fatigue, more "bad days", decreased activity tolerance, and recently decreased his evening meds secondary to more altered mental status changes and sedation. This did improve things for short period of time, but he is in today not feeling well. He does not have any cough, has had no frequent falls, and his weight has remained stable. He does need ongoing assistance with most ADLs but is able to ambulate short distances with walker, but needing more cueing, more difficulty getting from sitting to standing, and perceived effort with all activities. His most consistent complaint has been dull abdominal discomfort. We did try omeprazole, without any improvement after several weeks, it was described as a low-grade nausea, had responded initially to ondansetron intermittently. There is no longer as effective. He denies any acute sharp shooting pains abdomen is soft and nontender, is most intense upon awakening. His bowels are moving on his appetite has not been affected Social History - Living Situation Living arrangement: Adult family home Living Situation: With caregiver(s) Support System: Brittany Henry his does oversee patient's care, she is getting ready to go out of town for a couple weeks, this does increase his anxiety significantly. Medications/Allergies - Medications Home Medications: Ambulatory Orders Medication Instructions Recorded Confirmed Mirtazapine 15 mg PO QPM 06/21/16 11/30/17 QUEtiapine [SEROquel] 12.5 mg PO QPM 06/21/11/30/17 Tamsulosin [Flomax] 0.4 mg QPM 06/21/16 11/30/17 clonazePAM [Clonazepam] 0.25 mg PO 12 PRN 06/21/16 11/30/17 Cholecalciferol (Vitamin D3) 1,000 unit PO DAILY 02/09/17 11/30/17 [Vitamin D3] Cyanocobalamin (Vitamin B-12) 1,000 mcg IM .MONTHLY 02/09/17 11/30/17 [Cyanocobalamin Injection] Polyethylene Glycol 3350 [Miralax] 8.5 gm PO DAILY 02/09/17 11/30/17 Ondansetron HCl [Zofran] 4 mg PO Q8HR PRN 06/26/17 11/30/17 clonazePAM [Clonazepam] 0.5 mg PO 2100 06/26/17 11/30/17 Nystatin [Nystop] 1 applic TOP DAILY 08/07/17 11/30/17 Pantoprazole [Protonix] 40 mg PO ACHS 11/30/17 11/30/17 - Allergies Allergies/Adverse Reactions: Allergies Allergy/AdvReac Type Severity Reaction Status Date / Time No Known Drug Allergies Allergy Verified 06/21/16 18:51 Review of Systems - Constitutional Constitutional: reports: Fatigue (worsening), Weight stable. denies: Fever, Chills - Eyes Eyes: reports: Vision loss, Corrective lenses - Ears, Nose & Throat Ears, Nose & Throat: reports: Hearing loss (mild), Dental decay (frequent appointments) - Cardiovascular Cardiovascular: reports: Irregular heart rate, Palpitations, Edema, Exertional dyspnea, Decr. exercise tolerance. denies: Chest pain, Syncope, Orthopnea - Respiratory Respiratory: reports: SOB with exertion. denies: Cough, SOB at rest - Gastrointestinal Gastrointestinal: reports: Abdominal pain (dull ache across upper abdominal area ; worse in AM not attributed to eating or not eating.), Nausea, Good appetite. denies: Constipation, Diarrhea, Vomiting - Genitourinary Genitourinary: reports: Frequency, Urgency, Other (large pendulous inguinal hernia) - Musculoskeletal Musculoskeletal: reports: Muscle aches, Stiffness, Muscle weakness, Assistive devices (ambulates with walker) - Integumentary Integumentary: reports: Rash (groin), Dryness - Neurological Neurological: reports: General weakness, Memory problems, Other (increase in upper arm tremors) - Psychiatric Psychiatric: reports: Depression, Anxiety - Endocrine Endocrine: denies: Hypothyroidism - Hematologic/Lymphatic Hematologic/Lymphatic: denies: Anemia, Recurrent infections - All Other Systems All Other Systems: reports: Reviewed and negative Palliative Care - POLST Patient has POLST: Yes POLST Status: DNR, Comfort Measures Pain: Pain unchanged, Location (dull ache with nausea across upper abd) Tiredness/Fatigue: Severe (7-10) Drowsiness/Sedation: Mild (1-3) Nausea: Mild (1-3) Depression: Moderate (4-6) Anxiety: Severe (7-10) Dyspnea: Moderate (4-6) Anorexia: Mild (1-3) Sleep: Variable sleep pattern (up frequently at night to void) Constipation: No Feelings of wellbeing/Perceived Quality of Life: Poor, Worsening Performance Status: Patient requires assistance with most ADLs, can ambulate short distances with walker, does need assistance from sitting to standing. Does need assistance with bathing. Patient does self-feed. His functional status has declined over the last several weeks, he has decreased activity tolerance and I would put him at a PPS of 60% - Palliative Care Discussion: Patient continues to have poor quality of life, is concerned as patient is appearing much more fragile and frail. His anxiety is quite high, but this is his baseline. 's perception is patient is scared to of dying, and feels that this is part of his anxiety as he is becoming more frail. Patient does not have any baseline congregational believes, does not find any comfort other than with time with his Brittany Henry. She is also getting ready to go for a couple weeks with their grandkids, he does get quite anxious pending her departure. Results - Lab Results Lab results reviewed: Yes Lab and Imaging Results: Labs drawn, CBC,TSH, BMP, and UA done all within normal limits for patient Impression and Recommendations - Palliative Care Impression: This is a zac anxious 87-year-old gentleman who continues to struggle with symptoms of advanced age, and functional decline. He has had an exacerbation in his stomach discomfort, the ondansetron no longer is assisting with this, his activity tolerance and fatigue is becoming more severe and overwhelming to patient. Patient goals are to focus on conservative measures and comfort, continuing to weigh benefits and burdens as problems present themselves. Palliative care to continue to provide support and anticipatory guidance until transition to hospice when appropriate Recommendations/Counseling Done: 1. Abdominal discomfort. Patient describes kind of a gnawing discomfort, with some nausea feels like he is going to vomit at times. He has not actually vomited, and ondansetron is no longer being of assistance. We have trialed omeprazole in the past, given his description of his symptoms, agreed to try a PPI again ordered pantoprazole 40 mg delayed release to be taken at bedtime. His greatest intensity of his symptom is on awakening. It is not worsened or made better with food or eating. Did offer to do abdominal workup or referral, up to this point in time has declined any "fuss". 2. Fatigue. This is multifactorial in origin, would attribute this actually most likely due to his cardiac status. He does have poor activity tolerance, his heart rate is very very irregular, he has not had any syncope, or chest pain. Though his abdominal discomfort may be symptomatic of this. Will go ahead and draw labs, and check UA as patient always has frequency. An addendum all labs are within normal limits including TSH. 3. Anxiety. He will continue to titrate back medications, as patient was having some altered mental status particularly at night, patient does perceive himself as a person of worry. Agreed to see medical palliative care social services counselor will make referral. 4. Advanced care planning. MAK ST remains in place, goals of care to continue to focus on comfort and maximizing independence as long as possible. 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
== END 2017-11-29 15:27 | disposition home or self-care (01) ==
LOC: PC 15:26
PROVIDERS: ATTEND Nurse Practitioner Adult Health
DX: Z51.5 Encounter for palliative care (principal); R10.9 Unspecified abdominal pain; R53.83 Other fatigue; F41.9 Anxiety disorder, unspecified; F01.51 Vascular dementia, unspecified severity, with behavioral disturbance; M62.81 Muscle weakness (generalized); F32.9 Major depressive disorder, single episode, unspecified; Z66 Do not resuscitate
CPT/HCPCS: 99215

== ENCOUNTER 2017-11-29 16:11 | Outpatient (CLI) | payer MEDICARE, BC ==
[2017-11-29 16:19] LABS: BILIRUBIN,URINE NEGATIVE (NEGATIVE); GLUCOSE, URINE (UA) NEGATIVE (NEGATIVE); KETONES,URINE (UA) NEGATIVE (NEGATIVE); LEUKOCYTE ESTERASE, URINE NEGATIVE (NEGATIVE); NITRITE,URINE NEGATIVE (NEGATIVE); OCCULT BLOOD,URINE NEGATIVE (NEGATIVE); PROTEIN,URINE NEGATIVE (NEGATIVE); UROBILINOGEN,URINE 1 (NORMAL) E.U./dL (NORMAL)
[2017-11-29 16:22] LABS: CLARITY,URINE CLEAR (CLEAR)
[2017-11-29 16:37] LABS: ALBUMIN 3.7 g/dL (3.2-5.5); ALBUMIN/GLOBULIN RATIO 1.3 (1.0-2.2); CALCIUM 9.1 mg/dL (8.5-10.3); CREATININE 1.2 mg/dL (0.6-1.2); TOTAL PROTEIN 6.5 g/dL (6.7-8.2)
[2017-11-29 16:49] LABS: BASOPHILS % (AUTO) 0.6 %; EOSINOPHILS # (AUTO) 0.1 10^3/uL (0.0-0.7); EOSINOPHILS % (AUTO) 1.9 %; HGB - HEMOGLOBIN 16.1 g/dL (14.0-18.0); LYMPHOCYTES # (AUTO) 1.2 10^3/uL (1.5-3.5); LYMPHOCYTES % (AUTO) 17.1 %; MEAN CORPUSCULAR HEMOGLOBIN 31.9 pg (27.0-31.0); MEAN CORPUSCULAR HGB CONC 33.4 g/dL (32.0-36.0); MEAN CORPUSCULAR VOLUME 95.6 fL (80.0-94.0); MEAN PLATELET VOLUME 7.9 fL (7.4-11.4); MONOCYTES # (AUTO) 0.6 10^3/uL (0.0-1.0); MONOCYTES % (AUTO) 7.9 %; NEUTROPHILS # (AUTO) 5.2 10^3/uL (1.5-6.6); NEUTROPHILS % (AUTO) 72.5 %; PLT - PLATELET COUNT 205 10^3/uL (130-450); RED BLOOD COUNT 5.06 10^6/uL (4.70-6.10); RED CELL DISTRIBUTION WIDTH 13.4 % (12.0-15.0); WHITE BLOOD COUNT 7.2 x10^3/uL (4.8-10.8)
== END 2017-11-29 16:12 | disposition home or self-care (01) ==
LOC: LAB 16:11
PROVIDERS: ATTEND Nurse Practitioner Adult Health
DX: Z79.899 Other long term (current) drug therapy (principal); E03.9 Hypothyroidism, unspecified; R35.0 Frequency of micturition
CPT/HCPCS: 36415; 80053; 81001; 81003; 84443; 85025; 87086

== ENCOUNTER 2018-02-28 14:49 | Outpatient (CLI) | payer BC, MEDICARE ==
--- NOTE | 2018-02-28 21:09 | CONSULTATION NOTE ---
Palliative Care Follow Up - Referral Referring Provider: Dr. Charly Stanley Time of Visit: [id number] Referral setting: [facility] [place] Reason: Fatigue/Anxiety/Dementia - Information Sources Records reviewed: Previous records reviewed History/Review of Systems obtained from: Patient, Family ( Brittany Henry present for visit) Exam limitations: Clinical condition (Patient with short-term memory deficits; poor recall of symptom distress/ROS) - History of Present Illness Update Brief HPI Update: This is an anxious 87-year-old gentleman with vascular dementia, history of behavioral disturbances, no significant neuropsychiatric behaviors as his ongoing anxiety and perseveration, and most recently ongoing and persistent fatigue. Reports his fatigue and tiredness and a 8 out of 10, his activity tolerance remains poor, he does have increased generalized and lower extremity weakness. He denies any dizziness, any signs or symptoms of infection with dysuria, cough, fever or chills. He reports he does sleep at night without difficulty, sometimes has trouble getting to sleep, but confirms though up at night to void does get adequate rest. He continues to eat, gets adequate fluid intake, but is spending more time sitting and laying in bed. He does present today with stage II decub on his coccyx. His other debilitating symptom continues to be anxiety, perceives this has worsened over the last few weeks. Patient perceives himself as depressed at 7 out of 10 and rates his anxiety at 8 out of 10. Patient feels he is having increased trouble expressing himself, and his tongue is stuck in his mouth, his neuro exam normal. He had similar can concerns about fatigue at her last visit in November, his labs were fairly good with no abnormalities thyroid within normal limits, no anemia, kidney function good. Unable to identify any underlying etiology or change that might explain either his fatigue or anxiety. Though his is getting ready to go on a trip again on 03/22-03/31, he often gets quite anxious prior to this as well as some stressors at adult family home. Patient's past medical history includes TIA about 12 years ago, coronary artery disease with [place] at 62, angioplasty, atrial fib, CVA 7 years ago with no residual, type 2 diabetes diet-controlled, hyperlipidemia, spinal stenosis, and post polio syndrome, large inguinal/scrotal hernia, and BPH. Social History - Living Situation Living arrangement: Adult family home Support System: Brittany Henry provide ongoing support to patient, as well in her company. He does go to time together and she takes them out frequently, though is less able to tolerate sustained activity outside of the home setting Medications/Allergies - Medications Home Medications: Ambulatory Orders Medication Instructions Recorded Confirmed Mirtazapine 7.5 mg PO QPM MDD taper off 03/0506/21/16 02/28/18 QUEtiapine [SEROquel] 12.5 mg PO QPM 06/21/16 02/28/18 Tamsulosin [Flomax] 0.4 mg QPM 06/21/16 02/28/18 clonazePAM [Clonazepam] 0.25 mg PO 12 PRN 06/21/16 02/28/18 Cholecalciferol (Vitamin D3) 1,000 unit PO DAILY 02/09/17 02/28/18 [Vitamin D3] Cyanocobalamin (Vitamin B-12) 1,000 mcg IM .MONTHLY 02/09/17 02/28/18 [Cyanocobalamin Injection] Polyethylene Glycol 3350 [Miralax] 8.5 gm PO DAILY 02/09/17 02/28/18 Ondansetron HCl [Zofran] 4 mg PO Q8HR PRN 06/26/17 02/28/18 clonazePAM [Clonazepam] 0.5 mg PO 2100 06/26/17 02/28/18 Nystatin [Nystop] 1 applic TOP DAILY 08/07/17 02/28/18 Pantoprazole [Protonix] 40 mg PO ACHS 11/30/17 02/28/18 - Allergies Allergies/Adverse Reactions: Allergies Allergy/AdvReac Type Severity Reaction Status Date / Time No Known Drug Allergies Allergy Verified 06/21/16 18:51 Review of Systems - Constitutional Constitutional: reports: Fatigue, Weakness, Weight stable. denies: Fever, Chills, Night sweats - Eyes Eyes: reports: Vision loss, Corrective lenses - Ears, Nose & Throat Ears, Nose & Throat: reports: Hearing loss - Cardiovascular Cardiovascular: reports: Irregular heart rate, Exertional dyspnea, Decr. exercise tolerance. denies: Palpitations, Chest pain, Lightheadedness - Respiratory Respiratory: reports: SOB with exertion. denies: Cough, Orthopnea, SOB at rest - Gastrointestinal Gastrointestinal: reports: Good appetite. denies: Constipation, Diarrhea - Genitourinary Genitourinary: reports: Frequency, Urgency (not changed from baseline) - Musculoskeletal Musculoskeletal: reports: Stiffness, Muscle weakness, Assistive devices (uses walker; has shuffling gait) - Integumentary Integumentary: reports: Rash - Neurological Neurological: reports: General weakness, Memory problems - Psychiatric Psychiatric: reports: Depression, Anxiety. denies: Hallucinations - Hematologic/Lymphatic Hematologic/Lymphatic: denies: Anemia, Recurrent infections - All Other Systems All Other Systems: reports: Reviewed and negative Physical Exam - Vital Signs Pulse Rate: 53 Respiratory Rate: 18 Blood Pressure: 138/86 - Physical Exam General Appearance: positive: Mild distress, Anxious Eyes Bilateral: positive: Normal inspection ENT: positive: No signs of dehydration Neck: positive: No JVD, Trachea midline Cardiovascular: positive: Irregular, Other (murmer) Respiratory: positive: Other (decrease breath sounds LLL). negative: Wheezes, Rales, Rhonchi Abdomen: positive: Non-tender, Soft Skin: positive: Dryness, Rash (mild excoriation and rash right groin), Pressure wound (Stage II on Coccyx with moist desquamation on right of buttock; 3 x 3 cm area) Extremities: positive: No pedal edema, Other (feet and hands cool to touch) Neurologic/Psychiatric: positive: Disoriented to time, Weakness, Depressed mood/affect, Flat affect Palliative Care - POLST Patient has POLST: Yes POLST Status: DNR, Comfort Measures Pain: Comment (denies pain today) Tiredness/Fatigue: Severe (7-10) Drowsiness/Sedation: Severe (7-10) Nausea: Mild (1-3) Depression: Severe (7-10) Anxiety: Severe (7-10) Dyspnea: Mild (1-3) Anorexia: None Sleep: Sleeps well Constipation: No Feelings of wellbeing/Perceived Quality of Life: Poor, Worsening Performance Status: Patient does need assistance with ADLs including bathing and dressing. He is independent and toileting, who is having increased weakness and getting from sitting to standing. Also has decreased activity tolerance of spending more time in bed and on the couch. Patient can independently feed himself, but does need meal prep. - Palliative Care Discussion: Brittany Henry currently struggling with current living situation, is exploring other options for patient. This is escalated patient's anxiety, as well as her pending planned trip. Patient continues to present as quite frail and fragile, with slow functional and cognitive decline. He does have fluctuating days, but identifies more of these as "bad days". Goals of continue to focus on quality of life issues only, minimal medical workup or intervention, and weighing benefits and burdens of decisions as they arise. Results - Lab Results Lab results reviewed: Yes Impression and Recommendations - Palliative Care Impression: This is an 87-year-old gentleman with vascular dementia, continues to struggle with severe anxiety and depression. He does present is quite frail, his fatigue continues to impact his quality of life, and his anxiety as well recently escalated. Palliative care to continue to provide support for symptom management and psychosocial support. Recommendations/Counseling Done: 1. Fatigue, multifactorial in origin. Patient does have known post polio syndrome, unclear if this is playing into his current situation. We have titrated back most of his medications, his pacing activity, and participates in ongoing physical therapy. Though he is having decreased tolerance of this. Administered B12 shot to right buttock. 2. Generalized anxiety disorder. Counseling with regarding benefits and burdens of changing of medications. Will go ahead and titrate off mirtazapine, decrease to 7.5 mg 4 days, then discontinue. Will initiate sertraline 25 mg at bedtime, patient is not been on SSRIs before, will evaluate response. At that point in time will also decrease clonazepam from 0.5 mg to 0.25 mg at bedtime. exploring alternative living situations, she feels this would be of benefit the patient, but it is escalating his anxiety. Plan made for support while is gone. 3. Depression. 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 4. Stage II decub. Instructed to apply barrier cream twice daily and on pressure relief measures. 5. Advanced care planning. Goals remain to focus on quality of life issues with weighing benefits and burdens of medical tests/interventions/ medications in the context of this. Time Spent: 50 minutes with greater than dictating 50% of this done in counseling review of goals of care and anticipatory guidance
== END 2018-02-28 14:50 | disposition home or self-care (01) ==
LOC: PC 14:49
PROVIDERS: ATTEND Nurse Practitioner Adult Health
DX: Z51.5 Encounter for palliative care (principal); R53.83 Other fatigue; G14 Postpolio syndrome; F41.1 Generalized anxiety disorder; F32.9 Major depressive disorder, single episode, unspecified; F01.51 Vascular dementia, unspecified severity, with behavioral disturbance; E11.9 Type 2 diabetes mellitus without complications; M62.81 Muscle weakness (generalized); Z66 Do not resuscitate
CPT/HCPCS: 99215

== ENCOUNTER 2018-03-28 12:15 | Outpatient (CLI) | payer MEDICARE, BC ==
--- NOTE | 2018-03-28 21:31 | CONSULTATION NOTE ---
Palliative Care Follow Up - Referral Referring Provider: Dr. Charly Stanley Time of Visit: [id number] Referral setting: [facility] Referral Reason: Dysphonia/Anxiety - Information Sources Records reviewed: Previous records reviewed History/Review of Systems obtained from: Patient Exam limitations: Clinical condition (patient with short term memory issu es/anxiety) - History of Present Illness Update Brief HPI Update: This is an anxious 87-year-old gentleman with vascular dementia, has ongoing issues regarding anxiety and perseveration, and persistent fatigue. Patient presents today with concern and symptoms of dysphonia, his voice gets weak, he gets a spasm in his throat, unable to "get the words out". This is more prominent when he is focused and anxious about the symptom. Had noted when he was distracted and redirected he was able to speak with me with very little difficulty just occasional breathless numbness in his voice. He has no lymphadenopathy, no signs or symptoms of candidiasis, no difficulty swallowing or choking, no pharyngeal erythema. Denies any pain, chills, feeling of sore throat, or choking sensation. Only changes made recently is transitioned him off his mirtazapine, and initiated certain Sertraline. Initial response to this he did seem clear, was doing a little bit better, and did not seem to be an negative or a positive with his anxiety. Currently his is on a trip from 03/22-03[place], he gets often very anxious regarding this, unable to tell if this is just a new behavior or something more significant. There is nothing more significant about his exam, his lungs are clear, he has is intermittent abdominal discomfort, he continues with frequent urination though did not get up during my visit, he does see the palliative social media senior associate on a regular basis for counseling related to his anxiety. Social History - Living Situation Living arrangement: Adult family home Living Situation: Alone Support System: Brittany Henry currently on a trip, she does call him on a daily basis. Patient has had ongoing slow decline. They are looking into alternative living situation, does feel sometimes this as to the patient's distress being from her. [facility] are [facility] a [facility] in [place] with a place where both of them could be with his increased care needs. Medications/Allergies - Medications Home Medications: Ambulatory Orders Medication Instructions Recorded Confirmed QUEtiapine [SEROquel] 25 mg PO QPM 06/21/16 03/28/18 Tamsulosin [Flomax] 0.4 mg QPM 06/21/16 03/28/18 Cholecalciferol (Vitamin D3) 1,000 unit PO DAILY 02/09/17 03/28/18 [Vitamin D3] Cyanocobalamin (Vitamin B-12) 1,000 mcg IM .MONTHLY 02/09/17 03/28/18 [Cyanocobalamin Injection] Polyethylene Glycol 3350 [Miralax] 8.5 gm PO DAILY 02/09/17 03/28/18 Ondansetron HCl [Zofran] 4 mg PO Q8HR PRN 06/26/17 03/28/18 clonazePAM [Clonazepam] 0.5 mg PO 2100 06/26/17 03/28/18 Nystatin [Nystop] 1 applic TOP DAILY 08/07/17 03/28/18 Pantoprazole [Protonix] 40 mg PO ACHS 11/30/17 03/28/18 Aspirin 81 mg PO DAILY 03/28/18 03/28/18 Sertraline [Zoloft] 12.5 mg PO DAILY MDD titrating off 03/28/18 03/28/18 over 3 days - Allergies Allergies/Adverse Reactions: Allergies Allergy/AdvReac Type Severity Reaction Status Date / Time No Known Drug Allergies Allergy Verified 06/21/16 18:51 Review of Systems - Constitutional Constitutional: reports: Fatigue (continues to be a significant symptom), Weakness, Weight loss (141 (10/04 weight was 162.1) 9% weight loss) - Eyes Eyes: reports: Vision loss, Corrective lenses - Ears, Nose & Throat Ears, Nose & Throat: reports: Hearing loss, Hoarseness - Cardiovascular Cardiovascular: reports: Decr. exercise tolerance. denies: Chest pain, Orthopnea - Respiratory Respiratory: reports: SOB with exertion. denies: SOB at rest - Gastrointestinal Gastrointestinal: reports: Abdominal pain (intermittent; no worse than baseline- patient attributes to "nerves"), Early satiety. denies: Nausea, Vomiting, Refl ux/heartburn - Genitourinary Genitourinary: reports: Frequency. denies: Dysuria - Musculoskeletal Musculoskeletal: reports: Stiffness, Muscle weakness, Assistive devices (uses 4WW to ambulate; less tolerant of activity/PT) - Integumentary Integumentary: reports: Rash (groin rash with inguinal hernia), Dryness - Neurological Neurological: reports: General weakness, Memory problems (STM) - Psychiatric Psychiatric: reports: Depression, Anxiety. denies: Delusions - Hematologic/Lymphatic Hematologic/Lymphatic: denies: Recurrent infections - All Other Systems All Other Systems: reports: Reviewed and negative Physical Exam - Vital Signs Temperature: 97.2 C Pulse Rate: 88 Respiratory Rate: 18 O2 Saturation: 96 (ra @ rest) Blood Pressure: 122/74 - Physical Exam General Appearance: positive: Moderate distress, Anxious (about "loosing his voice all together") Eyes Bilateral: positive: Normal inspection ENT: positive: No signs of dehydration. negative: Pharyngeal erythema, Oral lesions, Dry mucous membranes Neck: positive: No JVD, Trachea midline Cardiovascular: positive: Irregular Respiratory: positive: Breath sounds nml, Diminished in bases. negative: Wheezes, Rales, Rhonchi Abdomen: positive: Non-tender, Soft, Nml bowel sounds Skin: positive: Dryness Extremities: positive: No pedal edema Neurologic/Psychiatric: positive: Oriented x3, Weakness, Depressed mood/affect, Flat affect Palliative Care - POLST Patient has POLST: Yes POLST Status: DNR, Comfort Measures Pain: Pain unchanged Tiredness/Fatigue: Severe (7-10) Drowsiness/Sedation: Mild (1-3) Nausea: Mild (1-3) Depression: Moderate (4-6) Anxiety: Severe (7-10) Dyspnea: Mild (1-3) Anorexia: None Sleep: Variable sleep pattern Constipation: No Feelings of wellbeing/Perceived Quality of Life: Poor, Worsening Performance Status: Patient remains quite frail, is able to ambulate short distances with a walker. Is finding that he has less activity tolerance, reports he does seem to have slowed down. Suspect some of this is related to muscle mass loss as well. He is dependent for assistance with dressing, bathing, and all IADLs. I would put him at a performance status of 60% - Palliative Care Discussion: Patient continues to express his sadness over his decline, does have insight into his own anxiety, does acknowledge he has sad and discouraged. is currently on a trip, does support him to multiple phone calls. Both and patient acknowledging changes, he has had weight loss, Fatigue is his most significant symptom, I suspect he is also experiencing at increased anxiety. Patient does have quite a bit of anxiety, is willing to admit he is afraid of dying. Goals have been to focus on comfort, avoiding hospitalization and any interventions that are not going to support quality of life. POLST in place comfort measures and DPOA is Brittany Henry [phone]. Impression and Recommendations - Palliative Care Impression: This is an 87-year-old gentleman who continues to have ongoing decline, cognitively he remains quite forgetful, has high levels of anxiety, but is still able to engage in conversations regarding wishes and quality of life. He has continued to decline though physically, with decreased activity tolerance, increased weakness, weight loss, and complaints of severe fatigue. He presents today with dysphonia, finds this quite distressing, suspect it may be related to his weakness and anxiety but at this point in time would not recommend further follow-up. Palliative care continue to provide support for patient and through his ongoing decline, will transition to hospice when appropriate unfortunately has no significant terminal illness more in the lines of failure to thrive. Recommendations/Counseling Done: 1. Dysphonia. I suspect the etiology is a combination of weakness and anxiety, unable to identify any underlying disorder and limited exam. Only change recently has been the addition of sertraline, is on low-dose, will titrate off and see if it improves. Reassurance given and will continue to follow 2. Generalized anxiety disorder. Had titrated off mirtazapine, initiated sertraline 25 mg at bedtime to see if this would improve his underlying anxiety. did find him more clear and less cloudy, unclear if it is helped his anxiety secondary to her being on vacation. Will titrate off to see if improves dysphonia, if no improvement will initiate back on and titrate up for his underlying anxiety. 3. Depression. Patient is receiving support to the medical palliative care social media senior associate, patient does have multiple anxieties and anxiety as well. She is working with him on life review. 4. Advanced care planning. AMK ST in place, goals remain to focus on quality of life issues. Weighing benefits and burdens of medical test/interventions/medications in the context of these as they arise. Patient has had a decline as far as weight loss, functional status, will transition to hospice when appropriate, unfortunately knows specific terminal illness though he does present somewhat as a failure to thrive. Time Spent: 45 minutes with greater than 50% of this done in counseling regarding patient's current concerns, anticipatory guidance, and coordination of care with adult family home
== END 2018-03-28 12:16 | disposition home or self-care (01) ==
LOC: PC 12:15
PROVIDERS: ATTEND Nurse Practitioner Adult Health
DX: Z51.5 Encounter for palliative care (principal); R49.0 Dysphonia; F41.1 Generalized anxiety disorder; F32.9 Major depressive disorder, single episode, unspecified; F01.50 Vascular dementia, unspecified severity, without behavioral disturbance, psychotic disturbance, mood disturbance, and anxiety; R53.83 Other fatigue; R06.09 Other forms of dyspnea; R53.1 Weakness; Z66 Do not resuscitate

== ENCOUNTER 2018-05-16 17:50 | Outpatient (CLI) | payer MEDICARE ==
--- NOTE | 2018-05-16 17:57 | CONSULTATION NOTE ---
Palliative Care Follow Up - Referral Referring Provider: Dr. Charly Stanley Time of Visit: 5712-3825 Referral setting: Adult Family Home (Patient seen and his adult family home, to facilitate treatment plan and family counseling. Patient is quite frail and it is a taxing and considerable effort for the patient to leave the home) Referral Reason: Anxiety/Stage II Decub on Coccyx - Information Sources Records reviewed: RN notes reviewed History/Review of Systems obtained from: Patient, Family ( Brittany Henry present for visit;) Exam limitations: Clinical condition (patient with moderate dementia; high anxiety) - History of Present Illness Update Brief HPI Update: This is a anxious 87-year-old gentleman with vascular dementia, continues with ongoing issues regarding anxiety and perseveration, and persistent fatigue. He has had intermittent difficulty with dysphonia, he is quite anxious and focused on this. In observation, he has no difficulty with swallowing, no lymphadenopathy, no pain on swallowing, gets quite tense and unable to get his "breath out". This is fluctuating in status, when distracted his voice is stronger. Have recently started him on venlafaxine 37.5 mg this has improved his anxiety somewhat, per 's observation, his depression is much better controlled as well. Patient has developed a stage II decub on his coccyx, patient with high risk factors, has recently started wearing depends, does have some kind of right buttock rash that follows the mesh pattern, he is not incontinent but is very anxious he is going to be incontinent. He also is quite sedentary, has a large significant inguinal hernia, that does "sweat" which I suspect is why he worries about being incontinent. Patient does remain quite fragile, but is doing fairly overall compared to his baseline. Social History - Living Situation Living arrangement: Adult family home Support System: His Brittany Henry oversees his care at adult [facility] [place]. They do try to "mix it up", he does go the [facility] for daycare a couple times a week and stimulation, as well as physical therapy to keep up his functional status. Medications/Allergies - Medications Home Medications: Ambulatory Orders Medication Instructions Recorded Confirmed QUEtiapine [SEROquel] 25 mg PO QPM 06/21/16 05/17/18 Tamsulosin [Flomax] 0.4 mg QPM 06/21/16 05/17/18 Cholecalciferol (Vitamin D3) 1,000 unit PO DAILY 02/09/17 05/17/18 [Vitamin D3] Cyanocobalamin (Vitamin B-12) 1,000 mcg IM .MONTHLY 02/09/17 05/17/18 [Cyanocobalamin Injection] Polyethylene Glycol 3350 [Miralax] 8.5 gm PO DAILY 02/09/17 05/17/18 Ondansetron HCl [Zofran] 4 mg PO Q8HR PRN 06/26/17 05/17/18 clonazePAM [Clonazepam] 0.5 mg PO 2100 06/26/17 05/17/18 Nystatin [Nystop] 1 applic TOP DAILY 08/07/17 05/17/18 Pantoprazole [Protonix] 40 mg PO ACHS 11/30/17 05/17/18 Aspirin 81 mg PO DAILY 03/28/18 05/17/18 Venlafaxine ER [Effexor ER] 37.5 mg PO DAILY 05/17/18 05/17/18 - Allergies Allergies/Adverse Reactions: Allergies Allergy/AdvReac Type Severity Reaction Status Date / Time No Known Drug Allergies Allergy Verified 06/21/16 18:51 Review of Systems - Constitutional Constitutional: reports: Fatigue, Weight stable. denies: Fever, Chills - Eyes Eyes: reports: Vision loss, Corrective lenses - Ears, Nose & Throat Ears, Nose & Throat: reports: Hearing loss, Other (dysphonia) - Cardiovascular Cardiovascular: reports: Irregular heart rate, Chest pain (tightness with anxiety;), Decr. exercise tolerance. denies: Edema - Respiratory Respiratory: reports: SOB with exertion. denies: SOB at rest - Gastrointestinal Gastrointestinal: reports: Abdominal pain (improved), Good appetite. denies: Constipation, Nausea - Genitourinary Genitourinary: reports: Frequency. denies: Incontinence - Musculoskeletal Musculoskeletal: reports: Stiffness, Muscle weakness, Assistive devices (uses walker for ambulation;) - Integumentary Integumentary: reports: Rash, Other (new pressure sore) - Neurological Neurological: reports: General weakness, Memory problems - Psychiatric Psychiatric: reports: Depression, Anxiety - Hematologic/Lymphatic Hematologic/Lymphatic: denies: Recurrent infections - All Other Systems All Other Systems: reports: Reviewed and negative Physical Exam - Vital Signs Temperature: 97.4 C Pulse Rate: 68 Respiratory Rate: 18 O2 Saturation: 94 (ra @ rest) Blood Pressure: 122/64 - Physical Exam General Appearance: positive: No acute distress, Anxious Eyes Bilateral: positive: Normal inspection ENT: positive: No signs of dehydration. 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; dull pink 1 cm area), Pressure wound (excoriated moist partial thickness area over coccyx 2 x1 cm mirroring area on buttocks) Extremities: positive: No pedal edema, Other (able to get from sit to stand independently) Neurologic/Psychiatric: positive: Disoriented to time, Weakness, Other (fluctuating voice;) Palliative Care - POLST Patient has POLST: Yes POLST Status: DNR, Comfort Measures Pain: Location (new pain at coccyx area) Tiredness/Fatigue: Moderate (4-6) Drowsiness/Sedation: Mild (1-3) Nausea: None Depression: Mild (1-3) (improved; enjoyed the holidays with family) Anxiety: Moderate (4-6) Dyspnea: Mild (1-3) Anorexia: None Sleep: Sleeps well Constipation: Managed Feelings of wellbeing/Perceived Quality of Life: Fair, Acceptable Performance Status: Patient able to get from sit to stand, does have a walker for ambulation. Most times is supervised can go short distances to the bathroom. Does need assistance with dressing as well as bathing. Patient can self feed, but meal prep as necessary. Patient can make his needs known, but is unable to oversee his own care. - Palliative Care Discussion: Patient continues with anxiety, though appears quite engaged today. Patient is perseverative and worried about his voice, reassured most likely related to his anxiety which he can understand as well. As this is fluctuating in status, and more he focuses on at the worse it gets. Patient continues with anxiety regarding advanced aging and future decline. Does have some insight into his behaviors, patient enjoyed the holidays with his family. MAK ST and place. Impression and Recommendations - Palliative Care Impression: This is a zac 87-year-old gentleman who continues with a slow decline, presents with ongoing high levels of anxiety, currently focused on his voice issues, and most recent development of a decub on his coccyx. Palliative care continue to provide support for patient and through his ongoing decline, addressing care issues and providing anticipatory guidance until transition to hospice. Recommendations/Counseling Done: 1. Decub stage II on coccyx. Counseling and problem solving regarding use of depends, this does appear to be the instigating factor as well as his sedentary state. Counseling provided on pressure relief measures, use of zinc-based barrier cream, negotiated use of depends only when going out for activities. Will use cotton briefs as patient is not incontinent. Rash will most likely resolve with discontinuation of depends as well. 2. Anxiety. 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 Patient is seen medical palliative care social services aide for processing ongoing underlying anxieties regarding impending decline and . Patient does appear to have good response to the venlafaxine. 3. Depression. 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 We will continue with social services aide for life review. 4. Advanced care planning. MAK ST in place, goals remain to focus on quality of life issues. Waiting benefits and burdens of medical tests/interventions/medications in the context as these arise. Patient does appear somewhat stable today, but has had a slow decline overall. Will transition to hospice when appropriate. Time Spent: 45 minutes with greater than 50% of this time in counseling regarding anxiety, management of new decub, anticipatory guidance. B12 administered to his left upper buttock area.
== END 2018-05-16 17:51 | disposition home or self-care (01) ==
LOC: PC 17:50
PROVIDERS: ATTEND Nurse Practitioner Adult Health
DX: Z51.5 Encounter for palliative care (principal); L89.152 Pressure ulcer of sacral region, stage 2; R21 Rash and other nonspecific skin eruption; F41.9 Anxiety disorder, unspecified; F32.9 Major depressive disorder, single episode, unspecified; F01.50 Vascular dementia, unspecified severity, without behavioral disturbance, psychotic disturbance, mood disturbance, and anxiety; R49.0 Dysphonia; E11.9 Type 2 diabetes mellitus without complications; Z79.899 Other long term (current) drug therapy; Z66 Do not resuscitate

== ENCOUNTER 2018-06-20 19:31 | Outpatient (CLI) | payer MEDICARE ==
--- NOTE | 2018-06-20 21:11 | CONSULTATION NOTE ---
Palliative Care Follow Up - Referral Referring Provider: Dr. Charly Stanley Time of Visit: [id number] Referral setting: Adult Family Home Referral Reason: Anxiety/Stage II decub coccyx - Information Sources Records reviewed: Previous records reviewed History/Review of Systems obtained from: Patient, Family ( Brittany Henry present for visit) Exam limitations: Clinical condition (patient with STM issues) - History of Present Illness Update Brief HPI Update: This is an anxious 87-year-old gentleman with vascular dementia, continues on going issues regarding anxiety with perseverating behaviors. does perceive it is better though on the Venlafaxine 37.5 mg. He continues to have difficulty with dysphonia, with no improvement on this. He does not having difficulty with swallowing, has small lymph node of about 1.5 cm under left mandible, no pain on swallowing, gets quite tense and unable "to breathe out". This is actually fluctuating status, and worse with focus on it. When distracted he is voice is stronger and able to converse. I have offered ENT referral again this visit, and declined. In the context they would not move forward with any kind of surgery or intervention anyway. Oral cavity without any signs or symptoms of candidiasis, and breath sounds are clear. Patient has stage II decub on coccyx, this is healing nicely, with only some rough patches left and healed. Patient does have high risk factors, he is quite sedentary, also has large right inguinal hernia that makes positioning and shifting pressure points difficult. Patient continues to be quite frail, but no recent infections, weight stable at 141, appetite good, no falls, remains ambulatory with front wheeled walker. But does require assistance with ADLs. Social History - Living Situation Living arrangement: Adult family home Support System: His Brittany Henry oversees his care at the adult family home. He does go to the [facility] for daycare a couple weeks for stimulation, currently physical therapy is on hold secondary to scheduling. will be gone July 05-, but 1 of his sons will be overseeing his care during that time. Medications/Allergies - Medications Home Medications: Ambulatory Orders Medication Instructions Recorded Confirmed QUEtiapine [SEROquel] 25 mg PO QPM 06/21/16 05/17/18 Tamsulosin [Flomax] 0.4 mg QPM 06/21/16 05/17/18 Cholecalciferol (Vitamin D3) 1,000 unit PO DAILY 02/09/17 05/17/18 [Vitamin D3] Cyanocobalamin (Vitamin B-12) 1,000 mcg IM .MONTHLY 02/09/17 05/17/18 [Cyanocobalamin Injection] Polyethylene Glycol 3350 [Miralax] 8.5 gm PO DAILY 02/09/17 05/17/18 Ondansetron HCl [Zofran] 4 mg PO Q8HR PRN 06/26/17 05/17/18 clonazePAM [Clonazepam] 0.5 mg PO 2100 06/26/17 05/17/18 Nystatin [Nystop] 1 applic TOP DAILY 08/07/17 05/17/18 Pantoprazole [Protonix] 40 mg PO ACHS 11/30/17 05/17/18 Aspirin 81 mg PO DAILY 03/28/18 05/17/18 Venlafaxine ER [Effexor ER] 37.5 mg PO DAILY 05/17/18 05/17/18 - Allergies Allergies/Adverse Reactions: Allergies Allergy/AdvReac Type Severity Reaction Status Date / Time No Known Drug Allergies Allergy Verified 06/21/16 18:51 Review of Systems - Constitutional Constitutional: reports: Fatigue, Weight stable (140.1), Other (no changes in medication; current list accurate) - Eyes Eyes: reports: Vision loss, Corrective lenses - Ears, Nose & Throat Ears, Nose & Throat: reports: Hearing loss (mild), Hoarseness. denies: Nasal congestion, Postnasal drainage, Sore throat - Cardiovascular Cardiovascular: reports: Irregular heart rate, Exertional dyspnea, Decr. exercise tolerance. denies: Chest pain, Syncope - Respiratory Respiratory: reports: SOB with exertion. denies: Cough, Orthopnea, SOB at rest - Gastrointestinal Gastrointestinal: reports: Abdominal pain, Reflux/heartburn (intermittent; controlled with tums), Good appetite. denies: Constipation, Nausea - Genitourinary Genitourinary: reports: Frequency (symptoms less), Incontinence (occasional at night; perceives inc. but "sweats" with hernia) - Musculoskeletal Musculoskeletal: reports: Stiffness, Muscle weakness, Assistive devices (uses walker) - Integumentary Integumentary: reports: Dryness, Other (decub coccyx) - Neurological Neurological: reports: General weakness, Memory problems (STM issues;) - Psychiatric Psychiatric: reports: Anxiety (remains persistent but improved). denies: Hallucinations, Behavior disturbances - Hematologic/Lymphatic Hematologic/Lymphatic: denies: Recurrent infections - All Other Systems All Other Systems: reports: Reviewed and negative Physical Exam - Vital Signs Temperature: 97.4 C Pulse Rate: 65 Respiratory Rate: 18 O2 Saturation: 96 (ra@ resting) Blood Pressure: 102/64 - Physical Exam General Appearance: positive: Mild distress (related to dysphonia; very focused on this symptom), Moderate distress, Anxious ENT: positive: No signs of dehydration. negative: Dry mucous membranes Neck: positive: No JVD, Trachea midline, Lymphadenopathy (L) (palpable node; nontender and nonfixed) Cardiovascular: positive: Irregular Respiratory: positive: Breath sounds nml Abdomen: positive: Non-tender, Soft, Nml bowel sounds, Other (large grapefruit size right inguinal hernia) Skin: positive: Rash (on lower buttocks dried and scaley but resolved), Pressure wound (improved; small open areas but scabbing over from original injury) Extremities: positive: No pedal edema, Other (some noted weakness sitting to standing but independent; shuffled gait and leans over walker; posture more bent) Neurologic/Psychiatric: positive: Mood/affect nml, Disoriented to time, Weakness, Slurred/abnml speech Palliative Care - POLST Patient has POLST: Yes POLST Status: DNR, Comfort Measures Pain: Pain improved (coccyx tender but not acutely painful; dull abdominal pain improved) Tiredness/Fatigue: Severe (7-10) Drowsiness/Sedation: Mild (1-3) Nausea: None Depression: Mild (1-3) Anxiety: Moderate (4-6) Dyspnea: Mild (1-3) Anorexia: None Sleep: Sleep improved Constipation: No Feelings of wellbeing/Perceived Quality of Life: Fair, No change Performance Status: Patient needs to be supervised for ambulation greater than going to just the bathroom. An adult family home just a few feet outside of his door. Does need maximum assist with bathing, assistance with dressing, patient can self feed but meal prep as necessary. Patient can make his needs known, but is unable to oversee his care. - Palliative Care Discussion: Patient continues with anxiety, concerned about dysphonia though does not want further work up. Patient presents is quite frail, continues to worry about multiple symptoms but overall is quite satisfied. Patient's MAK ST is in place, Yumiko FERRARO is his Brittany Henry [phone]. Goals remain to focus on comfort and quality of life issues, avoid hospitalization, and when appropriate transition to hospice support Impression and Recommendations - Palliative Care Impression: This is a zac 87-year-old gentleman who continues with slow decline, ongoing high levels of anxiety, dysphonia, and recent development of a decub which is resolving. Palliative care team continues to provide support for patient and who is ongoing decline, addressing care issues and providing anticipatory guidance until transition to hospice. Recommendations/Counseling Done: 1.1. Decub stage II on coccyx. This is improving, counseling provided regarding pressure relief measures, instructed continue to use zinc paste barrier cream until resolved, is using depends only at night which has improved the rash. Pain has improved, and continue to work on modifications to prevent further breakdown in future. 2. Anxiety. Patient unable to Incorporate breathing techniques when feeling anxious. Patient does have insight into this. Patient's anxiety is better on current medication regimen per 's perspective. Patient is seen by medical palliative care social media coordinator, will follow up on next appointment. 3. Depression. Patient does feel current depression is controlled, is expecting a visit upcoming from son, has been out with some friends with , is somewhat resigned to his current situation does not describe any persistent sadness or depressive feelings. 4. Fatigue. This is multifactorial in origin. B12 was administered to right upper buttock area. Caregivers and pacing activity, but encouraging patient to engage and be less sedentary. 5. Advanced care planning. MAK ST in place, goals remain to focus on quality of life issues. Continue to weigh benefits and burdens of medical/intervention/medications in the context of these as they arise. Patient without any acute decline, will continue to monitor monthly. Time Spent: 45 minutes with greater than 50% of this done in counseling regarding anxiety, management of decub, dysphonia, and anticipatory guidance.
== END 2018-06-20 19:32 | disposition home or self-care (01) ==
LOC: PC 19:31
PROVIDERS: ATTEND Nurse Practitioner Adult Health
DX: Z51.5 Encounter for palliative care (principal); L89.152 Pressure ulcer of sacral region, stage 2; F41.9 Anxiety disorder, unspecified; F32.9 Major depressive disorder, single episode, unspecified; R53.83 Other fatigue; F01.50 Vascular dementia, unspecified severity, without behavioral disturbance, psychotic disturbance, mood disturbance, and anxiety; E11.9 Type 2 diabetes mellitus without complications; Z79.899 Other long term (current) drug therapy; R49.0 Dysphonia; Z66 Do not resuscitate

== ENCOUNTER 2018-09-03 15:15 | Outpatient (CLI) | payer MEDICARE ==
--- NOTE | 2018-09-03 21:03 | CONSULTATION NOTE ---
Palliative Care Follow Up - Referral Referring Provider: Dr. Charly Stanley Time of Visit: [phone] Referral setting: Adult Family Home Referral Reason: Influenza A/Anxiety - Information Sources Records reviewed: Previous records reviewed History/Review of Systems obtained from: Patient, Caregiver (Awilda providing up date) Exam limitations: Clinical condition (patient with stm issues) - History of Present Illness Update Brief HPI Update: This is a zac 87-year-old gentleman, who is quite anxious with vascular de mentia, who lives in an adult family home. Unfortunately they do have a confirmed case of influenza A, patient had presented with cough, nasal congestion, and feeling quite poorly. His is taken back to her home to care for him, as adult family home cyber threat analyst was quite ill as well. He was started on Tamiflu on 08/30. He still presents with a moist cough, decreased breath sounds in his right lower lobe, no fever or chills. His perception that he is improving, though feels quite fatigued and weak. He is eating and drinking without any difficulty, is able to sleep, but reports sleeping through the day as well. He has been active in the context ambulates back and forth to bathroom at least hourly. His vital signs are stable, including his O2 sats at 96%. His is currently traveling out of country, patient does get escalating anxiety, but she has been in frequent contact with him. He is quite frail and at high risk for sequela, including pneumonia. Social History - Living Situation Living arrangement: Adult family home Support System: His Brittany Henry oversees his care at the adult family home. He is currently mostly isolating in his room given his current state of health, but does go to a day program at the [facility] a couple days a week as a norm. His son Bernard is available for follow-up if needed in her absence. Medications/Allergies - Medications Home Medications: Ambulatory Orders Medication Instructions Recorded Confirmed QUEtiapine [SEROquel] 25 mg PO QPM 06/21/16 09/03/18 Tamsulosin [Flomax] 0.4 mg QPM 06/21/16 09/03/18 Cholecalciferol (Vitamin D3) 1,000 unit PO DAILY 02/09/17 09/03/18 [Vitamin D3] Cyanocobalamin (Vitamin B-12) 1,000 mcg IM .MONTHLY 02/09/17 09/03/18 [Cyanocobalamin Injection] Polyethylene Glycol 3350 [Miralax] 8.5 gm PO DAILY 02/09/17 09/03/18 Ondansetron HCl [Zofran] 4 mg PO Q8HR PRN 06/26/17 09/03/18 clonazePAM [Clonazepam] 0.5 mg PO 2100 06/26/17 09/03/18 Nystatin [Nystop] 1 applic TOP DAILY 08/07/17 09/03/18 Pantoprazole [Protonix] 40 mg PO ACHS 11/30/17 09/03/18 Aspirin 81 mg PO DAILY 03/28/18 09/03/18 Venlafaxine ER [Effexor ER] 37.5 mg PO DAILY 05/17/18 09/03/18 Guaifenesin [Mucinex] 600 mg PO BID PRN 09/03/18 09/03/18 - Allergies Allergies/Adverse Reactions: Allergies Allergy/AdvReac Type Severity Reaction Status Date / Time No Known Drug Allergies Allergy Verified 06/21/16 18:51 Review of Systems - Constitutional Constitutional: reports: Fatigue, Weakness. denies: Fever, Chills, Night sweats - Eyes Eyes: reports: Vision loss, Corrective lenses - Ears, Nose & Throat Ears, Nose & Throat: reports: Hearing loss, Nasal congestion, Other (dysphonia; fluctuating) - Cardiovascular Cardiovascular: reports: Irregular heart rate, Decr. exercise tolerance. denies: Chest pain - Respiratory Respiratory: reports: Cough, Sputum production (clear), SOB with exertion. denies: Wheezing, Orthopnea, SOB at rest - Gastrointestinal Gastrointestinal: reports: Diarrhea (reports some loose stools over weekend; resolving), Good appetite. denies: Reflux/heartburn - Genitourinary Genitourinary: reports: Frequency, Other (large inguinal hernia) - Musculoskeletal Musculoskeletal: reports: Muscle weakness, Assistive devices (uses walker) - Integumentary Integumentary: denies: Rash - Neurological Neurological: reports: General weakness, Memory problems - Psychiatric Psychiatric: reports: Depression, Anxiety - All Other Systems All Other Systems: reports: Other (limited ROS with memory) Physical Exam - Vital Signs Temperature: 97.9 C Pulse Rate: 63 Respiratory Rate: 18 O2 Saturation: 96 (ra @ rest) Blood Pressure: 108/68 - Physical Exam General Appearance: positive: No acute distress, Alert, Anxious Eyes Bilateral: positive: Normal inspection ENT: positive: Pharynx nml Neck: positive: No JVD, Trachea midline Cardiovascular: positive: Irregular Respiratory: positive: Other (diminished RLL; moist cough). negative: Wheezes, Rales, Rhonchi Abdomen: positive: Non-tender, Soft Skin: positive: Other (feels like "leaking" large size of pint bottle inguinal hernia with "sweat"; patient is continent but anxious). negative: Rash (resolved in groin), Pressure wound (coccyx thinned but clear) Extremities: positive: No pedal edema Neurologic/Psychiatric: positive: Mood/affect nml, Disoriented to time, Weakness Palliative Care - POLST Patient has POLST: Yes POLST Status: DNR, Comfort Measures Pain: No pain Tiredness/Fatigue: Severe (7-10) Drowsiness/Sedation: Moderate (4-6) Nausea: None Depression: Moderate (4-6) Anxiety: Moderate (4-6) Dyspnea: Mild (1-3) Anorexia: Mild (1-3) Sleep: Sleeps well Constipation: No Feelings of wellbeing/Perceived Quality of Life: Fair, No change Performance Status: Patient feeling weaker, is able to ambulate back and forth to the bathroom. He does need assistance with bathing, has not had the energy plan to shower tomorrow. Patient is able to self feed. He does report going out to the dining table to eat. He does stay fairly isolated in his room. - Palliative Care Discussion: Patient is actually fairly calm compared to his baseline anxiety. He is not feeling well his most persistent distress this is fatigue. He does get quite anxious when his is traveling, but feels like he is settling in. His son did not come to oversee his care, as he is not able to go out and needs to rest and recover. He continues to be somewhat distressed regarding aging and all that goes with it, but is maintaining his sense of humor. Goals remain to focus on quality of life, patient does have a MAK ST with DNA R/comfort measures. His D POA is his Brittany Henry she is available despite traveling her phone number [phone]; if she is not available Bernard Kimald his son [phone] Impression and Recommendations - Palliative Care Impression: This is a zac anxious 87-year-old gentleman who continues with slow decline, now presenting with a sequela of influenza a. There are several residents of the adult family home, one with a confirmed swab. He is presenting with moist cough, though this is improving. He is almost completed with his Tamiflu, but remains at high risk for complications. Palliative care to continue provide oversight and support regarding goals to minimize hospitalization and interventions. Recommendations/Counseling Done: 1. Influenza A. Patient is almost completed with his Tamiflu, has shown some improvement as far as his cough symptoms. He has no fever or chills, just residual fatigue. His he is eating and drinking. Does present with right lower lobe diminished breath sounds, high risk for sequela of pneumonia, will continue to monitor. Patient denies any achiness, or pain. Will discontinue Advil secondary to patient's recurrent GERD 2. Decub stage II on coccyx. Coccyx is thinned, currently does appear improved, has been doing pressure relief measures. 3. Anxiety. Patient recently with med changes, does appear to be responding per 's perception. Patient does not present with severe anxiety today, maintains a sense of humor. He is also being seen by medical palliative care social work professor. 4. Fatigue. This is multifactorial in origin, and exacerbated by his acute illness. B12 was administered to left upper buttock area. 5. Advanced care planning. MAK ST in place, goals remain to focus on quality of life issues with continuing to weigh benefits and burdens of medical/intervention/medications in the context as these arise. Will continue to monitor on a regular basis. Time Spent: 30 minutes with greater than 50% of this done with counseling with patient and inst. to call if worsening cough/sob, follow-up with regarding findings and update, coordination of care with adult family home cyber threat analyst Awilda.
== END 2018-09-03 15:16 | disposition home or self-care (01) ==
LOC: PC 15:15
PROVIDERS: ATTEND Nurse Practitioner Adult Health
DX: Z51.5 Encounter for palliative care (principal); J10.1 Influenza due to other identified influenza virus with other respiratory manifestations; F41.9 Anxiety disorder, unspecified; L89.152 Pressure ulcer of sacral region, stage 2; K21.9 Gastro-esophageal reflux disease without esophagitis; E11.9 Type 2 diabetes mellitus without complications; F01.50 Vascular dementia, unspecified severity, without behavioral disturbance, psychotic disturbance, mood disturbance, and anxiety; Z66 Do not resuscitate; Z79.899 Other long term (current) drug therapy

== ENCOUNTER 2018-09-06 15:45 | Outpatient (CLI) | payer MEDICARE ==
--- NOTE | 2018-09-06 21:47 | CONSULTATION NOTE ---
Palliative Care Follow Up - Referral Referring Provider: Dr. Stanley Time of Visit: [phone] Referral setting: Adult Family Home Referral Reason: Persistant Cough - Information Sources Records reviewed: Previous records reviewed History/Review of Systems obtained from: Patient, Caregiver (Awilda NIX) Exam limitations: Clinical condition (patient with high anxiety; STM issues) - History of Present Illness Update Brief HPI Update: This is a zac 88-year-old gentleman, who has underlying severe anxiety with vascular dementia. Patient has been treated recently for influenza A, has started on Tamiflu 08/30 is completed. Continues with a persistent moist cough, on examination today no improvement in his breath sounds of the right lower lobe, he has no fever or chills but is complaining of significant fatigue. Patient is eating and drinking, but reports sleeping through the day. His O2 sats remained acceptable at 94%, patient's is traveling out of country which often exacerbates patient's symptoms. Concern regarding high risk for sequela of pneumonia and gentleman of advanced age with persistent symptoms. Social History - Living Situation Living arrangement: Adult family home Living Situation: With caregiver(s) Medications/Allergies - Medications Home Medications: Ambulatory Orders Medication Instructions Recorded Confirmed QUEtiapine [SEROquel] 25 mg PO QPM 06/21/16 09/03/18 Tamsulosin [Flomax] 0.4 mg QPM 06/21/16 09/03/18 Cholecalciferol (Vitamin D3) 1,000 unit PO DAILY 02/09/17 09/03/18 [Vitamin D3] Cyanocobalamin (Vitamin B-12) 1,000 mcg IM .MONTHLY 02/09/17 09/03/18 [Cyanocobalamin Injection] Polyethylene Glycol 3350 [Miralax] 8.5 gm PO DAILY 02/09/17 09/03/18 Ondansetron HCl [Zofran] 4 mg PO Q8HR PRN 06/26/17 09/03/18 clonazePAM [Clonazepam] 0.5 mg PO 2100 06/26/17 09/03/18 Nystatin [Nystop] 1 applic TOP DAILY 08/07/17 09/03/18 Pantoprazole [Protonix] 40 mg PO ACHS 11/30/17 09/03/18 Aspirin 81 mg PO DAILY 03/28/18 09/03/18 Venlafaxine ER [Effexor ER] 37.5 mg PO DAILY 05/17/18 09/03/18 Guaifenesin [Mucinex] 600 mg PO BID PRN 09/03/18 09/03/18 - Allergies Allergies/Adverse Reactions: Allergies Allergy/AdvReac Type Severity Reaction Status Date / Time No Known Drug Allergies Allergy Verified 06/21/16 18:51 Review of Systems - Constitutional Constitutional: reports: Fatigue, Weakness. denies: Fever, Chills - Eyes Eyes: reports: Vision loss, Corrective lenses - Ears, Nose & Throat Ears, Nose & Throat: reports: Hearing loss, Hoarseness, Dry mouth - Cardiovascular Cardiovascular: reports: Irregular heart rate - Respiratory Respiratory: reports: Cough (moist cough), SOB with exertion - Gastrointestinal Gastrointestinal: reports: Good appetite. denies: Nausea - Genitourinary Genitourinary: reports: Frequency - Musculoskeletal Musculoskeletal: reports: Muscle aches, Muscle weakness (reports feeling weaker and distressed at decline), Assistive devices (uses walker) - Integumentary Integumentary: reports: Dryness - Neurological Neurological: reports: General weakness, Memory problems - Psychiatric Psychiatric: reports: Depression, Anxiety - All Other Systems All Other Systems: reports: Other (limited ROS) Physical Exam - Vital Signs Temperature: 97.4 C Pulse Rate: 88 Respiratory Rate: 18 O2 Saturation: 94 (ra @ rest) - Physical Exam General Appearance: positive: Mild distress, Anxious Eyes Bilateral: positive: Normal inspection ENT: positive: No signs of dehydration Neck: positive: No JVD, Trachea midline Cardiovascular: positive: Irregular Respiratory: positive: Other (diminished RLL; moist cough with effort) Skin: positive: Pallor Extremities: positive: No pedal edema Neurologic/Psychiatric: positive: Disoriented to time, Weakness, Flat affect, Other (anxious) Palliative Care - POLST Patient has POLST: Yes POLST Status: DNR, Comfort Measures Pain: No pain Tiredness/Fatigue: Severe (7-10) Drowsiness/Sedation: Moderate (4-6) Nausea: None Depression: Moderate (4-6) Anxiety: Severe (7-10) Dyspnea: Moderate (4-6) Performance Status: Patient is ambulatory back and forth to the bathroom, reports he has having more difficulty getting from sitting to standing. Patient perceives he is feeling much weaker and fatigue is worse. Patient does receive assistance from caregivers for bathing, dressing, and meal prep. Impression and Recommendations - Palliative Care Impression: This is a zac 88-year-old gentleman who continues with a slow decline overall, patient seen earlier in the week. Patient seen per request as having continued persistent cough, complaints of severe fatigue, and increasing weakness. Patient's is currently out of the country, patient does have an underlying anxiety disorder and often does more poorly when she is gone. Given high risk, and recent influenza, will rule out pneumonia with chest x-ray. Recommendations/Counseling Done: 1. 1. Persistent cough. Patient has completed Tamiflu, has persistent fatigue, perceived increase in weakness, is sleeping more. He does not present with anorexia, fever, or chills. On examination right lower lobe with persistent diminished breath sounds. Chest x-ray ordered, trying to coordinate with caregivers for transportation. Would like to rule out pneumonia prior to weekend. 2. Anxiety. Patient does seem to have escalation of his anxiety, continues to be out of town, mood can fluctuate as well as patient's response to her absence. Counseling and support provided, report given to .She does keep in daily contact with patient. Time Spent: 30 minutes with review of symptoms, counseling with caregivers regarding management of patient's symptoms, transportation for chest x-ray, and anticipatory guidance
== END 2018-09-06 15:46 | disposition home or self-care (01) ==
LOC: PC 15:45
PROVIDERS: ATTEND Nurse Practitioner Adult Health
DX: Z51.5 Encounter for palliative care (principal); R05 Cough; R06.02 Shortness of breath; R53.83 Other fatigue; R53.1 Weakness; R06.89 Other abnormalities of breathing; F41.9 Anxiety disorder, unspecified; F32.9 Major depressive disorder, single episode, unspecified; F01.50 Vascular dementia, unspecified severity, without behavioral disturbance, psychotic disturbance, mood disturbance, and anxiety; E11.9 Type 2 diabetes mellitus without complications; Z87.09 Personal history of other diseases of the respiratory system; Z66 Do not resuscitate; Z79.899 Other long term (current) drug therapy

== ENCOUNTER 2018-09-07 14:20 | Outpatient (CLI) | payer MEDICARE ==
--- NOTE | 2018-09-07 15:05 | XRAY Report ---
Reason: PERSISTANT COUGH Procedure Date: 09/07/2018 Accession Number: [id number] / [id number] Procedure: XR - Chest 2 View X-Ray CPT Code: 16147 FULL RESULT: EXAM: CHEST RADIOGRAPHY EXAM DATE: 09/07/2018 02:24 PM. CLINICAL HISTORY: Persistent cough COMPARISON: CHEST 2 VIEW PA/LAT 06/21/2016 4:23 PM. TECHNIQUE: 2 views. FINDINGS: Lungs/Pleura: No evidence of lobar infiltrate. There is a small right pleural effusion. There is no evidence of pneumothorax. Mediastinum: Heart and mediastinal contours are unremarkable. Other: None. IMPRESSION: 1. Lung volumes and heart size are within normal limits. 2. No evidence of lobar infiltrate. 3. There is a small right pleural effusion. 4. No pneumothorax. RADIA
== END 2018-09-07 14:21 | disposition home or self-care (01) ==
LOC: DI 14:20
PROVIDERS: ATTEND Nurse Practitioner Adult Health
DX: R05 Cough (principal); J90 Pleural effusion, not elsewhere classified
CPT/HCPCS: 71046

== ENCOUNTER 2018-09-17 13:19 | Emergency (ER) | payer MEDICARE ==
[2018-09-17 14:14] LABS: BASOPHILS # (AUTO) 0.1 10^3/uL (0.0-0.1); BASOPHILS % (AUTO) 1.4 %; EOSINOPHILS # (AUTO) 0.1 10^3/uL (0.0-0.7); EOSINOPHILS % (AUTO) 0.6 %; HGB - HEMOGLOBIN 15.1 g/dL (14.0-18.0); LYMPHOCYTES # (AUTO) 1.3 10^3/uL (1.5-3.5); LYMPHOCYTES % (AUTO) 15.8 %; MEAN CORPUSCULAR HEMOGLOBIN 31.8 pg (27.0-31.0); MEAN CORPUSCULAR HGB CONC 34.1 g/dL (32.0-36.0); MEAN CORPUSCULAR VOLUME 93.1 fL (80.0-94.0); MEAN PLATELET VOLUME 7.1 fL (7.4-11.4); MONOCYTES # (AUTO) 0.5 10^3/uL (0.0-1.0); MONOCYTES % (AUTO) 6.2 %; NEUTROPHILS # (AUTO) 6.2 10^3/uL (1.5-6.6); PLT - PLATELET COUNT 287 10^3/uL (130-450); RED BLOOD COUNT 4.76 10^6/uL (4.70-6.10); RED CELL DISTRIBUTION WIDTH 12.9 % (12.0-15.0); WHITE BLOOD COUNT 8.2 x10^3/uL (4.8-10.8)
[2018-09-17 14:28] LABS: ALBUMIN 3.7 g/dL (3.2-5.5); ALBUMIN/GLOBULIN RATIO 1.3 (1.0-2.2); BILIRUBIN,TOTAL 1.4 mg/dL (0.2-1.0); CALCIUM 9.9 mg/dL (8.5-10.3); CREATININE 0.8 mg/dL (0.6-1.2); TOTAL PROTEIN 6.6 g/dL (6.7-8.2)
[2018-09-17 15:28] LABS: BILIRUBIN,URINE NEGATIVE (NEGATIVE); GLUCOSE, URINE (UA) NEGATIVE (NEGATIVE); KETONES,URINE (UA) NEGATIVE (NEGATIVE); LEUKOCYTE ESTERASE, URINE NEGATIVE (NEGATIVE); NITRITE,URINE NEGATIVE (NEGATIVE); OCCULT BLOOD,URINE NEGATIVE (NEGATIVE); PROTEIN,URINE NEGATIVE (NEGATIVE); UROBILINOGEN,URINE 1 (NORMAL) E.U./dL (NORMAL)
[2018-09-17] MEDS ORDERED: LORazepam 2 MG/ML VIAL IVP STA (15:32)
--- NOTE | 2018-09-17 15:35 | ED Physician Documentation ---
PD HPI ABD PAIN - Stated complaint Stated Complaint: ABD PX SENT BY - Chief complaint Chief Complaint: Abd Pain - History obtained from History obtained from: Patient, Family - History of Present Illness Timing - onset: Today Timing - duration: Hours Timing - details: Gradual onset, Still present Quality: Sharp, Pain Location: RLQ Radiation: Lower back Improved by: Laying still Worsened by: Moving, Breathing, Position, Palpation Associated symptoms: Nausea. No: Vomiting, Diarrhea, Constipation Similar symptoms before: Has not had sx before Recently seen: Clinic - Additional information Additional information: 88-year-old male with a chronic right inguinal hernia that is quite large has had a cough and over the past week he has finally improved with this and this morning he woke up with tunnel pain. He has pain and nausea the pain feels deep and his hernia which is usually never tender is tender today. He does not usually reduce the hernia. Review of Systems Constitutional: denies: Fever Eyes: denies: Decreased vision Ears: denies: Ear pain Nose: denies: Rhinorrhea / runny nose, Congestion Throat: denies: Sore throat Cardiac: denies: Chest pain / pressure, Palpitations Respiratory: denies: Dyspnea, Cough GI: reports: Abdominal Pain, Nausea. denies: Vomiting, Constipation, Diarrhea : denies: Dysuria, Frequency Skin: denies: Rash Musculoskeletal: denies: Neck pain, Back pain, Extremity pain Neurologic: denies: Generalized weakness, Focal weakness, Numbness PD PAST MEDICAL HISTORY - Past Medical History Past Medical History: Yes Cardiovascular: None Respiratory: None Neuro: None Endocrine/Autoimmune: None GI: Other : None HEENT: None Psych: Anxiety Musculoskeletal: None Derm: None Other Past Medical History: hernia in lower abdomen - Past Surgical History Past Surgical History: Yes Ortho: Hip replacement - Present Medications Home Medications: Ambulatory Orders Medication Instructions Recorded Confirmed QUEtiapine [SEROquel] 25 mg PO QPM 06/21/16 09/03/18 Tamsulosin [Flomax] 0.4 mg QPM 06/21/16 09/03/18 Cholecalciferol (Vitamin D3) 1,000 unit PO DAILY 02/09/17 09/03/18 [Vitamin D3] Cyanocobalamin (Vitamin B-12) 1,000 mcg IM .MONTHLY 02/09/17 09/03/18 [Cyanocobalamin Injection] Polyethylene Glycol 3350 [Miralax] 8.5 gm PO DAILY 02/09/17 09/03/18 Ondansetron HCl [Zofran] 4 mg PO Q8HR PRN 06/26/17 09/03/18 clonazePAM [Clonazepam] 0.5 mg PO 2100 06/26/17 09/03/18 Nystatin [Nystop] 1 applic TOP DAILY 08/07/17 09/03/18 Pantoprazole [Protonix] 40 mg PO ACHS 11/30/17 09/03/18 Aspirin 81 mg PO DAILY 03/28/18 09/03/18 Venlafaxine ER [Effexor ER] 37.5 mg PO DAILY 05/17/18 09/03/18 Guaifenesin [Mucinex] 600 mg PO BID PRN 09/03/18 09/03/18 - Allergies Allergies/Adverse Reactions: Allergies Allergy/AdvReac Type Severity Reaction Status Date / Time No Known Drug Allergies Allergy Verified 09/17/18 13:34 - Social History Does the pt smoke?: No Smoking Status: Never smoker Does the pt drink ETOH?: No Does the pt have substance abuse?: No - Immunizations Immunizations are current?: Yes - POLST Patient has POLST: Yes PD ED PE NORMAL - Vitals Vital signs reviewed: Yes (normal ) - General General: Alert and oriented X 3, No acute distress, Well developed/nourished, Other (quiet voice masked face ?parkinsons) - HEENT HEENT: Atraumatic, PERRL, EOMI, Ears normal, Moist mucous membranes, Pharynx benign, Dentition benign - Neck Neck: Supple, no meningeal sign, No bony TTP - Cardiac Cardiac: Other (2/6 holosystolic murmer at LSB ) - Respiratory Respiratory: No respiratory distress, Clear bilaterally - Abdomen Abdomen: Soft, Other (There is a large right inguinal hernia that is firm and tender. There is no overlying erythema and there are no pulsations. The mass is not reducible. ) - Back Back: No CVA TTP, No spinal TTP - Derm Derm: Normal color, Warm and dry, No rash - Extremities Extremities: No deformity, No edema - Neuro Neuro: Alert and oriented X 3, police booking officer 2-12 intact, No motor deficit, No sensory deficit, Normal speech Eye Opening: Spontaneous Motor: Obeys Commands Verbal: Oriented GCS Score: 15 - Psych Psych: Normal mood, Normal affect Results - Vitals Vitals: Vital Signs - 24 hr 09/17/18 09/17/18 13:31 18:01 Temperature 36.8 C Heart Rate 55 L 56 L Respiratory 18 18 Rate Blood Pressure 116/78 154/109 H O2 Saturation 97 98 Oxygen O2 Source Room air - Labs Labs: Laboratory Tests 09/17/18 09/17/18 09/17/18 14:10 14:10 15:09 WBC 8.2 RBC 4.76 Hgb 15.1 Hct 44.3 MCV 93.1 MCH 31.8 H MCHC 34.1 RDW 12.9 Plt Count 287 MPV 7.1 L Neut # (Auto) 6.2 Lymph # (Auto) 1.3 L [place] # (Auto) 0.5 Eos # (Auto) 0.1 Baso # (Auto) 0.1 Absolute Nucleated RBC 0.00 Nucleated RBC % 0.0 Sodium 134 L Potassium 4.2 Chloride 99 L Carbon Dioxide 26 Anion Gap 9.0 BUN 18 Creatinine 0.8 Estimated GFR (MDRD) 91 Glucose 122 H Lactic Acid Calcium 9.9 Total Bilirubin 1.4 H AST 21 ALT 23 Alkaline Phosphatase 101 Troponin I Total Protein 6.6 L Albumin 3.7 Globulin 2.9 Albumin/Globulin Ratio 1.3 Lipase 36 Urine Color YELLOW Urine Clarity CLEAR Urine pH 7.0 Ur Specific [place] 1.010 Urine Protein NEGATIVE Urine Glucose (UA) NEGATIVE Urine Ketones NEGATIVE Urine Occult Blood NEGATIVE Urine Nitrite NEGATIVE Urine Bilirubin NEGATIVE Urine Urobilinogen 1 (NORMAL) Ur Leukocyte Esterase NEGATIVE Ur Microscopic Review NOT INDICATED Urine Culture Comments NOT INDICATED 09/17/18 09/17/18 15:46 15:46 WBC RBC Hgb Hct MCV MCH MCHC RDW Plt Count MPV Neut # (Auto) Lymph # (Auto) [place] # (Auto) Eos # (Auto) Baso # (Auto) Absolute Nucleated RBC Nucleated RBC % Sodium Potassium Chloride Carbon Dioxide Anion Gap BUN Creatinine Estimated GFR (MDRD) Glucose Lactic Acid 1.3 Calcium Total Bilirubin AST ALT Alkaline Phosphatase Troponin I < 0.04 Total Protein Albumin Globulin Albumin/Globulin Ratio Lipase Urine Color Urine Clarity Urine pH Ur Specific [place] Urine Protein Urine Glucose (UA) Urine Ketones Urine Occult Blood Urine Nitrite Urine Bilirubin Urine Urobilinogen Ur Leukocyte Esterase Ur Microscopic Review Urine Culture Comments - Rads (name of study) CT abd/ple with Radiology: Prelim report reviewed (Impression: There is a large right inguinal region hernia. It measures 7 x 10 cm there is distended cecum and distal ileum within the hernia with associated fat stranding fluid this could represent incarcerated hernia. 2 There is a 3 x 4 cm left inguinal region: Containing hernia without clear evidence of associated inflammation. 3 The rectum just is distended to 7 cm with stool. 4 Solid abdominal organs demonstrate no acute abnormalities.), EMP read indepedently, See rad report PD MEDICAL DECISION MAKING - ED course Complexity details: reviewed old records, reviewed results, re-evaluated patient, considered differential, d/w patient, d/w family, d/w etl consultant (Dr. Lopez recommends attempting reduction or partial reduction for comfort. ) ED course: 88-year-old male with a chronically incarcerated right inguinal hernia that had now has significant pain appears to be full of stool in an attempt to reduce this is done with manual traction circumferential pressure. There is some success to this with a reduction in the size to approximately half the size softening of the hernia and improvement in pain. He has a large bolus of stool at the rectal opening and he is given an enema. Departure - Departure Disposition: 01 Home, Self Care Clinical Impression: Inguinal hernia Qualifiers: Obstruction and gangrene presence: without obstruction or gangrene Laterality: bilateral Recurrence: not specified as recurrent Qualified Code(s): K40.20 - Bilateral inguinal hernia, without obstruction or gangrene, not specified as recurrent Constipation Qualifiers: Constipation type: unspecified constipation type Qualified Code(s): K59.00 - Constipation, unspecified Condition: Stable Instructions: ED Constipation, ED Hernia Inguinal Follow-Up: Cheri Bowman ARNP [Primary Care Provider] - Mychal De Jesus MD [Provider Admit Priv/Credential] -
[2018-09-17 15:43] LABS: CLARITY,URINE CLEAR (CLEAR)
[2018-09-17] MEDS ORDERED: IOPAMIDOL-300 100 ML VIAL ONE (16:00)
--- NOTE | 2018-09-17 17:16 | CT Report ---
Reason: RLQ pain hernia chronic large and tender now. Procedure Date: 09/17/2018 Accession Number: [id number] / [id number] Procedure: CT - Abdomen/Pelvis W CPT Code: FULL RESULT: EXAM: CT ABDOMEN AND PELVIS EXAM DATE: 09/17/2018 04:39 PM. CLINICAL HISTORY: RLQ pain hernia chronic large and tender now. COMPARISONS: ABDOMEN/PELVIS W/ 10/24/2014 2:30 PM. TECHNIQUE: Routine helical CT imaging was performed through the abdomen and pelvis. IV contrast: CE. Enteric contrast: No. Reconstructions: Coronal and sagittal. In accordance with CT protocol optimization, one or more of the following dose reduction techniques were utilized for this exam: automated exposure control, adjustment of mA and/or KV based on patient size, or use of iterative reconstructive technique. FINDINGS: Lung Bases: Unremarkable. Liver: No focal masses are seen. Gallbladder/Bile Ducts: Unremarkable. Spleen: Normal. Pancreas: Normal. Adrenal Glands: Normal. Kidneys: Normal. No masses or hydronephrosis. Peritoneal Cavity/Bowel: There is moderate gaseous distention of stomach. The rectum is distended to 7 cm with stool. There is a low right inguinal region hernia measuring 7 x 10 cm. There is distended bowel, cecum and distal ileum, within the hernia. There is some associated fat stranding and fluid density. There is no evidence of appendicitis. There is a small left colon containing inguinal hernia measuring 3 x 4 cm. There is no evidence of intraperitoneal free air. Pelvic Organs: The urinary bladder is decompressed. Vasculature: No acute vascular abnormalities are seen. 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 Other: None. IMPRESSION: 1. There is a large right inguinal region hernia. It measures 7 x 10 cm. There is distended cecum and distal ileum within the hernia with associated fat stranding and fluid. This could represent incarcerated hernia. 2. There is a 3 x 4 cm left inguinal region colon containing hernia without clear evidence of associated inflammation. 3. The rectum is distended to 7 cm with stool. 4. Solid abdominal organs demonstrate no acute abnormalities. [facility]
[2018-09-17] MEDS ORDERED: IOPAMIDOL-300 100 ML VIAL IVP ONE (17:32)
[2018-09-17 18:02] VITALS: BP 154/109
== END 2018-09-17 19:00 | disposition home or self-care (01) ==
LOC: ED 13:19
DX: K40.31 Unilateral inguinal hernia, with obstruction, without gangrene, recurrent (principal); K40.90 Unilateral inguinal hernia, without obstruction or gangrene, not specified as recurrent; K59.00 Constipation, unspecified; R01.1 Cardiac murmur, unspecified; Z79.82 Long term (current) use of aspirin
CPT/HCPCS: 36415; 74177; 80053; 81003; 83605; 83690; 84484; 85025; 96374; 99283; 99284; J2060; Q9967; 81001; 87086

== ENCOUNTER 2018-09-25 11:30 | Outpatient (CLI) | payer MEDICARE ==
--- NOTE | 2018-09-25 16:55 | CONSULTATION NOTE ---
Palliative Care Follow Up - Referral Referring Provider: Dr. Charly Stanley Time of Visit: 1130-12:15 Referral setting: Adult Family Home Referral Reason: Failure to Thrive/Dementia/Anxiety - Information Sources Records reviewed: Previous records reviewed History/Review of Systems obtained from: Patient, Family (spoke with Brittany Henry on phone), Caregiver (Awilda and Marely CGs at [facility]) Exam limitations: Clinical condition (patient moderately confused from baseline; anxious) - History of Present Illness Update Brief HPI Update: This is a very frail 88-year-old gentleman who has underlying severe anxiety disorder with vascular dementia. He recently had influenza A, in mid August, had been fairly frail after this with persistent cough, decreased activity, and sleeping more. [place], patient gets quite anxious during this time. As best we can tell patient became quite constipated. He presented on 400 with abdominal pain, was sent to the ED, has a significant right inguinal hernia, and on examination was found on CT scan to be largely impacted with 7 cm of stool. They had tried to disimpact him at the ED, unsuccessfully. Patient was given aggressive bowel program, and did over several days passed large amounts of liquid and chunks of stool. This though did leave him quite exhausted. His labs at the ED were within normal limits, it is slightly elevated total bili at 1.4, but his sodium was 134 and potassium 4.2 as well as a BUN of 18 and creatinine 0.8 GFR 91. He did not have an elevated lactate at 1.3 and was negative on his troponin he also had a negative UA. Patient is continued to do poorly, has had some intermittent liquid stool, his abdominal pain had resolved, Has been quite anxious. He is sleeping most of the time, very poor appetite, with decreased intake most likely dehydrated. Am seeing him today adult family home on his report he drank 3 glasses of juice, was incontinent of a small amount of liquid stool this morning, and had given him already has MiraLAX. He is able to ambulate to the bathroom, his weight is remained stable at 140. His orthostatics are 108/72 with a pulse of 105 sitting and 106/58 with a pulse of 105 standing. He denies dizziness, but is quite tremulous when asked about his anxiety. But when ambulating the bathroom he was actually doing fairly well. He does feel somewhat nauseated, he does have tenderness across his lower abdomen, he does have active bowel tones.Patient does have underlying memory issues, but does seem more confused today, is oriented to person and place, but distressed at his current condition. Social History - Living Situation Living arrangement: Adult family home Support System: Patient lives at the adult family home, does go home at times to visit with his . Brittany Henry oversees his care, she continues to work, patient's needs are escalating with his decline. Medications/Allergies - Medications Home Medications: Ambulatory Orders Medication Instructions Recorded Confirmed QUEtiapine [SEROquel] 25 mg PO QPM 06/21/16 09/25/18 Tamsulosin [Flomax] 0.4 mg QPM 06/21/16 09/25/18 Cholecalciferol (Vitamin D3) 1,000 unit PO DAILY 02/09/17 09/25/18 [Vitamin D3] Cyanocobalamin (Vitamin B-12) 1,000 mcg IM .MONTHLY 02/09/17 09/25/18 [Cyanocobalamin Injection] Polyethylene Glycol 3350 [Miralax] 8.5 gm PO DAILY PRN 02/09/17 09/25/18 Ondansetron HCl [Zofran] 4 mg PO Q6HR PRN 06/26/17 09/25/18 clonazePAM [Clonazepam] 0.5 mg PO 2100 06/26/17 09/25/18 Nystatin [Nystop] 1 applic TOP DAILY 08/07/17 09/25/18 Pantoprazole [Protonix] 40 mg PO ACHS 11/30/17 09/25/18 Aspirin 81 mg PO DAILY 03/28/18 09/25/18 Venlafaxine ER [Effexor ER] 37.5 mg PO DAILY 05/17/18 09/25/18 Guaifenesin [Mucinex] 600 mg PO BID PRN 09/03/18 09/25/18 clonazePAM [Clonazepam] 0.25 mg PO .NOON PRN 09/25/18 09/25/18 - Allergies Allergies/Adverse Reactions: Allergies Allergy/AdvReac Type Severity Reaction Status Date / Time No Known Drug Allergies Allergy Verified 09/17/18 13:34 Review of Systems - Constitutional Constitutional: reports: Fatigue, Weight stable (140). denies: Fever - Eyes Eyes: reports: Vision loss, Corrective lenses - Ears, Nose & Throat Ears, Nose & Throat: reports: Hearing loss, Hoarseness, Dry mouth - Cardiovascular Cardiovascular: reports: Irregular heart rate, Lightheadedness, Exertional dyspnea, Decr. exercise tolerance. denies: Chest pain - Respiratory Respiratory: reports: SOB with exertion - Gastrointestinal Gastrointestinal: reports: Diarrhea (reported liquid stool last night; some incontinence small amount this am;), Nausea, Poor appetite, Early satiety. denies: Reflux/heartburn - Genitourinary Genitourinary: reports: Frequency - Musculoskeletal Musculoskeletal: reports: Muscle weakness, Assistive devices (using walker; needs some assist to get from sitting to standing) - Integumentary Integumentary: reports: Dryness - Neurological Neurological: reports: General weakness, Memory problems (increased confusion today), Abnormal gait - Psychiatric Psychiatric: reports: Depression, Anxiety - All Other Systems All Other Systems: reports: Other (limited ROS patient with STM;) Physical Exam - Vital Signs Temperature: 97.7 C Pulse Rate: 105 (very irregular) Respiratory Rate: 18 O2 Saturation: 94 (ra @ rest; 96 with ambulation) Blood Pressure: 108/72 (sitting; 106/58 standing) - Physical Exam General Appearance: positive: Moderate distress, Anxious Eyes Bilateral: negative: Conjunctivae nml (eyes reddened) Neck: positive: Trachea midline Cardiovascular: positive: Tachycardia (105) Respiratory: positive: No respiratory distress, Diminished in bases Abdomen: positive: Tenderness (l) Skin: positive: Pallor Extremities: positive: No pedal edema Neurologic/Psychiatric: positive: Disoriented to time, Weakness, Slurred/abnml speech Palliative Care - POLST Patient has POLST: Yes POLST Status: DNR, Comfort Measures Pain: Location (patient denies pain at rest; presents with lower abdominal pain and discomfort with palpation) Tiredness/Fatigue: Severe (7-10) Drowsiness/Sedation: Moderate (4-6) Nausea: Moderate (4-6) Depression: Moderate (4-6) Anxiety: Severe (7-10) Dyspnea: Mild (1-3) Anorexia: Moderate (4-6) Sleep: Sleeps well Constipation: Intermittent constipation Feelings of wellbeing/Perceived Quality of Life: Poor, Worsening Performance Status: Patient did need some assistance from sitting to standing, he also needs some cueing as far as direction. Caregivers though report patient ambulated out to kitchen table this morning for breakfast without difficulty. Patient's gait is quite slow and shuffled compared to his baseline. He does deny dizziness when he is up. He is dependent for all ADLs. - Palliative Care Discussion: Patient very anxious about his current situation, he is feeling somewhat befuddled. He is worried that his caregivers "do not know what the doing". He is very distressed about being incontinent of stool this morning. Patient was reassured, given his prn clonazepam, and support for his current anxiety. Spoke at length to his , regarding goals of care. Patient is quite frail, most likely dehydrated and could be hypokalemic. We discussed weighing benefits and burdens of going into ED, labs, or more aggressive interventions. Patient has had continued functional and cognitive decline, given his current quality of life and goals to focus on comfort will continue to manage symptoms in the adult family home. Discussed possibly transitioning to hospice, patient has been acutely ill, unclear at this point in time how quick his imminent decline is. Though he is quite fragile, presents as failure to thrive, will need to monitor over the next few days to week to see if he will meet hospice criteria. Discussed with that she would want to bring him home for end-of-life care, at this point in time she feels it would be more beneficial for her to at present provide support in his current setting. We will continue to revisit and monitor patient's status. Results - Lab Results Lab results reviewed: Yes Lab and Imaging Results: reviewed ed labs and imaging Impression and Recommendations - Palliative Care Impression: This is an anxious 88-year-old gentleman who has an acute decline, and presents with failure to thrive. He has had decreased intake, presents with symptoms of dehydration, and weakness. Patient has underlying anxiety disorder, this is been exacerbated and has increased baseline confusion today. Patient has had recent influenza, presented with severe constipation, and now with diarrhea and anorexia. Goals of care were reviewed, focus is on comfort, palliative care will continue to provide support patient and adult family home setting and transition to hospice if appropriate Recommendations/Counseling Done: 1. Failure to thrive. This is multifactorial in origin, including recent acute illness. Reviewed with both and caregivers, patient most likely with some dehydration. Encouraged to push fluids, small frequent feedings, gentle food choices such as along the BRAT T diet. Patient does have ondansetron as needed order, spoke with she will bring medication as it is not in the home. Given a couple TUMS, and 1/2 clonazepam to address his discomfort. 2. Diarrhea. Patient received MiraLAX this morning, at this point in time patient assumed not to be impacted. We will go ahead and hold until patient's bowels firm up, he is getting probiotics, and addressing diet changes. 3. Anxiety. Patient does have underlying anxiety disorder, is very anxious about his declining health. Patient is always had a significant fear of dying, will contact medical palliative care social insurance specialist who has relationship with patient for support. Will monitor may need to increase clonazepam dosing, patient though already sleeping probably 75% of the time, will follow up if need more as needed dosing. 4. Advanced care planning. Patient currently presents with acute sequela of his recent episode of constipation and ED visit. Patient has had slow steady functional and cognitive decline, now with acute changes. Counseling and support in review of goals of care with , will continue to focus on comfort and no aggressive interventions. If patient continues to decline will look at transitioning to hospice. Time Spent: 45 minutes with greater than 50% of this done in counseling coordination of care related to patient's acute symptoms and anticipatory guidance for caregivers and .
== END 2018-09-25 11:31 | disposition home or self-care (01) ==
LOC: PC 11:30
PROVIDERS: ATTEND Nurse Practitioner Adult Health
DX: Z51.5 Encounter for palliative care (principal); F01.50 Vascular dementia, unspecified severity, without behavioral disturbance, psychotic disturbance, mood disturbance, and anxiety; P92.6 Failure to thrive in newborn; F41.9 Anxiety disorder, unspecified; R19.7 Diarrhea, unspecified; R35.0 Frequency of micturition; R26.2 Difficulty in walking, not elsewhere classified; H54.7 Unspecified visual loss; H91.90 Unspecified hearing loss, unspecified ear; Z79.82 Long term (current) use of aspirin; Z66 Do not resuscitate; Z86.19 Personal history of other infectious and parasitic diseases

== ENCOUNTER 2018-10-02 12:15 | Outpatient (CLI) | payer MEDICARE ==
--- NOTE | 2018-10-02 13:33 | CONSULTATION NOTE ---
Palliative Care Follow Up - Referral Referring Provider: Dr. Charly Stanley Time of Visit: 8580-3690 Referral setting: Adult Family Home Referral Reason: Anxiety/Failure to Thrive - Information Sources Records reviewed: Previous records reviewed History/Review of Systems obtained from: Patient, Family ( Brittany Henry present for part of visit), Caregiver ([employer] talent acquisition assistant Awilda) Exam limitations: Clinical condition (patient with mild confusion/anxiety) - History of Present Illness Update Brief HPI Update: This is a very frail 88-year-old gentleman who is under the dementia, and presents with ongoing failure to thrive. He had presented on with abdominal pain, was sent to the ED and has significant right inguinal hernia 7 x 10 cm, and small left inguinal hernia measuring [address] also presented with severe impaction of 7 cm of stool, with aggressive bowel management was able to pass large "chunks" and continues to pass small amounts of liquid stool at home over several days. He has not really recovered from both this incident of abdominal pain and in the week previous from his influenza A. Patient is eating small amounts, less than his norm. Unable to get weight, but does appear with some temporal wasting. Does complain of intermittent nausea, but has continued to be more weak. With his increased confusion, weakness, and less ability to be in dependent in ambulation, he has been mostly at the adult family home. Over the weekend he had some increased paranoia, his anxiety had exacerbated, he is very fearful of dying and with his weakness this was causing significant amount of difficulty as far as behavioral management. We had doubled his Seroquel to 50 mg at bedtime, he did seem to do better with this, the paranoia has resolved, he is sleeping better, but now presents with mild confusion from baseline. Patient is quite weak, and is a 1 person pivot assist to the chair, patient previous level of functioning was able to ambulate short distances with walker. He has been sleeping a significant amount of the day, but now is sleeping through the night. He himself does admit to severe anxiety, he does have tremors when talking about his anxiety, though at rest these are not evident. He has been incontinent of both bowel and stool, this has been difficult for him. He does present with some tenderness over the area of the left inguinal hernia, with some firmness, palpated golf-sized mass. Is not red or inflamed, patient does not present with fever or chills. He has been drinking better, does not appear dehydrated today. Social History - Living Situation Living arrangement: Adult family home Living Situation: With caregiver(s) Support System: Patient had adult family home, at times does go with his but has not been able to do that this last week. He has been too weak and frail, she would not be able to manage his increased care needs at this point in time. He is essentially total assist with all activities other than feeding. His Brittany Henry continues to provide oversight and support, he has been at the adult family home now for greater than a year and though complains is quite comfortable in the setting. Medications/Allergies - Medications Home Medications: Ambulatory Orders Medication Instructions Recorded Confirmed QUEtiapine [SEROquel] 25 mg PO QPM 06/21/16 10/02/18 Tamsulosin [Flomax] 0.4 mg QPM 06/21/16 10/02/18 Cholecalciferol (Vitamin D3) 1,000 unit PO DAILY 02/09/17 10/02/18 [Vitamin D3] Cyanocobalamin (Vitamin B-12) 1,000 mcg IM .MONTHLY 02/09/17 10/02/18 [Cyanocobalamin Injection] Polyethylene Glycol 3350 [Miralax] 8.5 gm PO DAILY PRN 02/09/17 10/02/18 Ondansetron HCl [Zofran] 4 mg PO Q6HR PRN 06/26/17 10/02/18 clonazePAM [Clonazepam] 0.5 mg PO 2100 06/26/17 10/02/18 Nystatin [Nystop] 1 applic TOP DAILY 08/07/17 10/02/18 Pantoprazole [Protonix] 40 mg PO ACHS 11/30/17 10/02/18 Aspirin 81 mg PO DAILY 03/28/18 10/02/18 Venlafaxine ER [Effexor ER] 37.5 mg PO DAILY 05/17/18 10/02/18 Guaifenesin [Mucinex] 600 mg PO BID PRN 09/03/18 10/02/18 clonazePAM [Clonazepam] 0.25 mg PO .NOON PRN MDD may have 09/25/18 10/02/18 prn in night - Allergies Allergies/Adverse Reactions: Allergies Allergy/AdvReac Type Severity Reaction Status Date / Time No Known Drug Allergies Allergy Verified 09/17/18 13:34 Review of Systems - Constitutional Constitutional: reports: Fatigue (sleeping more during the day), Weakness - Eyes Eyes: reports: Vision loss, Corrective lenses - Ears, Nose & Throat Ears, Nose & Throat: reports: Hearing loss, Hoarseness, Dry mouth - Cardiovascular Cardiovascular: reports: Irregular heart rate, Decr. exercise tolerance. denies: Chest pain - Respiratory Respiratory: denies: SOB at rest - Gastrointestinal Gastrointestinal: reports: Diarrhea (loose stools mixed with formed; 1-2 x a day), Nausea, Early satiety. denies: Abdominal distention, Vomiting, Reflux/heartburn - Genitourinary Genitourinary: reports: Frequency, Incontinence - Musculoskeletal Musculoskeletal: reports: Muscle aches, Stiffness, Muscle weakness, Transfer issues (needs one person assist with transfers) - Integumentary Integumentary: reports: Dryness - Neurological Neurological: reports: General weakness, Memory problems - Psychiatric Psychiatric: reports: Depression, Anxiety, Hallucinations (improved) - All Other Systems All Other Systems: reports: Other (limited ROS) Physical Exam - Vital Signs Temperature: 97.7 C Pulse Rate: 94 Respiratory Rate: 18 O2 Saturation: 98 (ra @ rest) Blood Pressure: 132/72 - Physical Exam General Appearance: positive: Mild distress, Anxious Eyes Bilateral: positive: Normal inspection ENT: positive: No signs of dehydration Neck: positive: No JVD, Trachea midline Cardiovascular: positive: Irregular Respiratory: positive: No respiratory distress, Diminished in bases Abdomen: positive: Soft, Abnml bowel sounds (hyperactive), Mass (small left inguinal golf size firm mass/tenderness) Skin: positive: Pallor, Dryness, Pressure wound (small area stage I pressure coccyx) Extremities: positive: No pedal edema Neurologic/Psychiatric: positive: Mood/affect nml, Disoriented to time, Weak ness, Depressed mood/affect, Flat affect, Other (voice weak) Palliative Care - POLST Patient has POLST: Yes POLST Status: DNR, Comfort Measures Pain: Comment (no pain at rest; only when palpated abdomen) Tiredness/Fatigue: Severe (7-10) Drowsiness/Sedation: Moderate (4-6) Nausea: Moderate (4-6) Depression: Moderate (4-6) Anxiety: Severe (7-10) Dyspnea: Moderate (4-6) Anorexia: Mild (1-3) Sleep: Sleep improved Constipation: Intermittent constipation (miralax on hold) Feelings of wellbeing/Perceived Quality of Life: Poor, Worsening Performance Status: Patient has had a decline in his functional status, had been previously able to ambulate independently with walker to the bathroom back and forth. Now needs 1 person assist with transfer to the chair, assistance with bed mobility. Patient does appear quite weak, is sleeping much more. Would put him at a PPS of 40%. - Palliative Care Discussion: Spoke with patient, reports he is severely anxious, feels like he is "totally out of control". When trying to explore the source of his anxiety, continues to be about being anxious, when asked about if he was anxious about dying "I am one step closer". He actually looks a little bit better than last time I saw him, he does not perceive himself is improved. He feels quite overwhelmed, unable to really find anything that is comforting, reassured we are trying to keep him as comfortable as possible. Does admit to feeling somewhat confused, difficulty processing thoughts, this is getting to him feeling overwhelmed. Does complain of severe fatigue, encouraged to relax and allow support. There is nothing to be "doing". With , reports patient has long-term struggled with anxiety, his mother quite fearful and full of anxiety as well. We discussed weighing benefits and burdens of transitioning to hospice, at this point in time it may be overwhelming to him to have multiple new players involved, will have Melva who is a aids social worker is met with him before see him this week. Counseling provided regarding the role of hospice, if patient begins actively transitioning, or has increase in symptoms we will look at providing this level of support. He is at the [facility], Awilda finds it very disruptive, but will acquiese if patient continues to deteriorate. Patient does show some signs of improvement, though not back to baseline. Discussed this may not be realistic, this may be close to his new normal, will continue to monitor and make recommendations accordingly. If very clear on goals, who would like patient to be comfortable, with hoping he transition quickly as he does not do well hanging out in what would call the "twilight zone". Impression and Recommendations - Palliative Care Impression: Had a rapid an acute decline, is starting to improve but still presents as a failure to thrive. Continues to have decreased intake, appears to have had some weight loss, but is no longer showing symptoms of dehydration. He is quite weak, continues to sleep a significant amount of the day, he does have underlying anxiety disorder and this is been exacerbated. Goals of care continue to be focus on comfort, palliative care will continue to provide support the patient in adult family home setting and transition to hospice when accepting are appropriate Recommendations/Counseling Done: 1. Failure to thrive. This is multifactorial in origin, has had some improvement but continues to be quite frail. Patient does appear to be hydrated at this point in time, is eating small amounts, does still have some mild nausea, and intermittent incontinence of stool, liquid mixed with soft. Given ondansetron at time of visit, encouraged to continue small frequent feedings and encouragement of fluids. 2. Dementia with behavioral disturbances. Patient did have an exacerbation of his paranoia, anxiety disorder, and hallucinations. Patient did respond to increased dose of Seroquel 50 mg at bedtime, now appears to be much more even keeled. Given his feeling of sedation, will go ahead and back off to 25 mg at that time. We will continue to monitor behavior and titrate accordingly. 3. Generalized anxiety disorder. Patient did not need extra clonazepam last night, did sleep through the night. Patient does perceive himself is quite anx ious, this appears fairly consistent with his past worries regarding end of life. Appointment made with medical palliative care aids social worker, counseling provided to normalize his fears and concerns. Reassured currently he has showing some improvement from his acute illness, unclear what patient's new baseline will be. 4. Advanced care planning. Family meeting with patient's , goal continues to focus on comfort, no further acute interventions or hospitalizations. Patient has had a slow and steady functional and cognitive decline, now with further acute changes. Counseling provided regarding hospice benefit, benefits and burdens of moving forward. We will continue to hold off given patient's severe underlying anxiety and difficulty with changes. At this point in time patient has no other further symptoms needs, and appropriate tools in the home. Time Spent: 45 minutes was given 50% of this done in counseling regarding goals of care coordination of care with clinical staff and anticipatory guidance provided with
== END 2018-10-02 12:16 | disposition home or self-care (01) ==
LOC: PC 12:15
PROVIDERS: ATTEND Nurse Practitioner Adult Health
DX: Z51.5 Encounter for palliative care (principal); R62.7 Adult failure to thrive; R15.9 Full incontinence of feces; R32 Unspecified urinary incontinence; F03.91 Unspecified dementia, unspecified severity, with behavioral disturbance; F41.1 Generalized anxiety disorder; K40.20 Bilateral inguinal hernia, without obstruction or gangrene, not specified as recurrent; L89.151 Pressure ulcer of sacral region, stage 1; Z87.09 Personal history of other diseases of the respiratory system; Z79.899 Other long term (current) drug therapy; Z66 Do not resuscitate

== ENCOUNTER 2018-10-11 13:15 | Outpatient (CLI) | payer MEDICARE ==
--- NOTE | 2018-10-11 17:17 | CONSULTATION NOTE ---
Palliative Care Follow Up - Referral Referring Provider: Dr. Charly Stanley Time of Visit: 7989-7283 Referral setting: Home Referral Reason: Failure to Thrive/Anxiety - Information Sources Records reviewed: Previous records reviewed History/Review of Systems obtained from: Patient, Family (follow up with [facility]), Caregiver (AF caregivers) Exam limitations: Clinical condition (patient quite anxious; difficulty with STM and recall) - History of Present Illness Update Brief HPI Update: This is a very frail 88-year-old gentleman who vascular dementia, presents with ongoing functional and cognitive decline as well as failure to thrive. This was triggered when he presented on with abdominal pain, and in ED was found to have a severe impaction, with aggressive bowel movement this was resolved. He is also in the week previous had influenza A. He is continue to be quite weak, poor appetite, today presents his difficulty with walking and increase in tremors. He does have a significant right inguinal hernia 7 x 10 cm and a small left inguinal hernia 3 x 4 cm measured recently on CT scan. He has had 3 falls in the last 2 weeks, with one yesterday resulting in an abrasion of his left shoulder and bruise on his left knee and hip. Unfortunately underlying he has a severe anxiety disorder, is been exacerbated with his feeling poorly, and inability to spend his weekends at home because of his increased care needs. Patient presents today with complaints of nausea, does have some tenderness across upper abdomen into the right side. No distention, no masses palpated. His bowel sounds are regular, caregiver reports he is eating quite well. He is not drinking enough though, probably about 8 to 12 ounces in 24 hours, he does present with symptoms of moderate dehydration. Caregiver concerned regarding orange color of urine, patient has had elevated bilirubin in June.4. Patient does not present with any signs or symptoms of systemic UTI, but urine sample was obtained. Patient is quite weak on standing, does have increased tremors, and is presenting with his increased symptoms of anxiety, including a little bit of paranoia, perseverating, and expressing feelings of feeling overwhelmed. Social History - Living Situation Living arrangement: Adult family home Support System: Patient lives at adult family home, does at times spend weekends with his . His care needs are such now that she does not feel she can manage him. This is been significant distress to him, and has escalated his anxiety and behaviors. He does need standby assistance with ambulation, has been ambulatory in the past with a walker. But it does present quite weak and shaky today. He is incontinent, but is able to feed himself. His oversees his care, and visits on a regular basis, and calls several times a day to help him with his coping Medications/Allergies - Medications Home Medications: Ambulatory Orders Medication Instructions Recorded Confirmed QUEtiapine [SEROquel] 25 mg PO QPM 06/21/16 10/11/18 Tamsulosin [Flomax] 0.4 mg QPM 06/21/16 10/11/18 Cholecalciferol (Vitamin D3) 1,000 unit PO DAILY 02/09/17 10/11/18 [Vitamin D3] Cyanocobalamin (Vitamin B-12) 1,000 mcg IM .MONTHLY 02/09/17 10/11/18 [Cyanocobalamin Injection] Polyethylene Glycol 3350 [Miralax] 8.5 gm PO . 2 DAYS PRN 02/09/17 10/11/18 Ondansetron HCl [Zofran] 4 mg PO Q6HR PRN 06/26/17 10/11/18 Nystatin [Nystop] 1 applic TOP DAILY 08/07/17 10/11/18 Pantoprazole [Protonix] 40 mg PO ACHS 11/30/17 10/11/18 Aspirin 81 mg PO DAILY 03/28/18 10/11/18 Venlafaxine ER [Effexor ER] 37.5 mg PO DAILY 05/17/18 10/11/18 clonazePAM [Clonazepam] 0.25 mg PO .0900 & 1400 PRN MDD 09/25/18 10/11/18 may have prn in night - Allergies Allergies/Adverse Reactions: Allergies Allergy/AdvReac Type Severity Reaction Status Date / Time No Known Drug Allergies Allergy Verified 09/17/18 13:34 Review of Systems - Constitutional Constitutional: reports: Fatigue, Weakness. denies: Fever, Chills - Eyes Eyes: reports: Vision loss, Corrective lenses - Ears, Nose & Throat Ears, Nose & Throat: reports: Hearing loss, Postnasal drainage, Hoarseness, Dry mouth - Cardiovascular Cardiovascular: reports: Irregular heart rate, Exertional dyspnea, Decr. exercise tolerance - Respiratory Respiratory: reports: SOB with exertion. denies: Orthopnea, SOB at rest - Gastrointestinal Gastrointestinal: reports: Constipation (caregivers report a medium inc. formed BM; some "squirts" liquid stool; patient denies rectal pressure), Nausea (given Zofran ODT at time of visit), Early satiety (improving) - Genitourinary Genitourinary: reports: Incontinence - Musculoskeletal Musculoskeletal: reports: Limited range of motion, Muscle weakness, Assistive devices (using walker with max assist) - Integumentary Integumentary: reports: Rash, Dryness - Neurological Neurological: reports: General weakness, Memory problems - Psychiatric Psychiatric: reports: Depression, Anxiety, Delusions - All Other Systems All Other Systems: reports: Other (limited ROS with patient STM) Physical Exam - Vital Signs Temperature: 97.6 C Pulse Rate: 85 Respiratory Rate: 18 O2 Saturation: 95 (ra @ rest) Blood Pressure: 108/82 - Physical Exam General Appearance: positive: Mild distress, Anxious, Lethargic Eyes Bilateral: positive: Normal inspection ENT: negative: Pharyngeal erythema Neck: positive: No JVD, Trachea midline Cardiovascular: positive: Irregular Respiratory: positive: Diminished in bases. negative: Wheezes, Rales, Rhonchi Abdomen: positive: Soft, Nml bowel sounds, Tenderness. negative: Guarding, Mass, Distended Skin: positive: Pallor, Dryness, Pressure wound (stage I decub) Extremities: positive: No pedal edema Neurologic/Psychiatric: positive: Disoriented to time, Weakness, Slurred/abnml speech, Depressed mood/affect, Flat affect Palliative Care - POLST Patient has POLST: Yes POLST Status: DNR, Comfort Measures Pain: Location (abdominal pain on exam; no complaints to c/gs) Tiredness/Fatigue: Severe (7-10) Drowsiness/Sedation: Mild (1-3) Nausea: Moderate (4-6) Depression: Severe (7-10) Anxiety: Severe (7-10) Dyspnea: None Anorexia: Mild (1-3) Sleep: Variable sleep pattern Constipation: Intermittent constipation Feelings of wellbeing/Perceived Quality of Life: Poor, Worsening - Palliative Care Discussion: Met with patient, he is quite overwhelmed and distressed. He is frustrated in the context he is feeling so poorly, he reports "I would be this way until I ". He does understand he is not returning home with his , though he very much would like her to take him home. He does understand he is too much work at this point in time. He though is quite resentful about this, but does understand when pressed. He does get "into it" with Awilda the adult family home compensation specialist, she gets quite frustrated with him, as he doesn't complain or tell her when anything is wrong, i.e. the nausea and needing a Zofran at time of visit. He does admit to confusion, and difficulty concentrating. His when spoke to her, feels he is very bored and this is adding to his anxiety. He is having difficulty following TV programs, so leaves him with little to distract him. She does understand he is deteriorating, and presenting as a failure to thrive. The patient does not have any "terminal diagnosis". We did discuss some the context of introducing hospice, patient most likely would be overwhelmed given his underlying anxiety about dying and his decline. Currently his needs are being met, no acute symptoms, has actually improved from my last visit who is quite weak and tremulous today. She does not want to prolong his suffering, if patient would have an event or become acutely ill, the goal would be to focus on comfort. This would be congruent with his wishes as well. His family is quite supportive of when he starts to decline or if has an acute event to let him go Results - Lab Results Lab results reviewed: Yes Lab and Imaging Results: UA was negative, communicated to and [employer] compensation specialist Awilda Impression and Recommendations - Palliative Care Impression: This is a frail 88-year-old gentleman who presents his failure to thrive. He continues to have decreased intake, some weight loss, mild dehydration. He is quite weak, continues to sleep a significant amount of the day, is having increased difficulty with his anxiety and managing his current situation. Goals of care continue me to focus on comfort, palliative care to continue provide support for the patient and adult family home setting and transition to hospice when accepting or appropriate. Recommendations/Counseling Done: 1. Failure to thrive. This is multifactorial in origin, continues to be quite frail, with mild dehydration. He is eating though some, has mild nausea, he is sleeping more. He has no acute symptoms to attributed his current condition 2, UA was negative. Goals continue to be to focus on comfort. 2. Dementia with behavioral disturbances. Patient did have an exacerbation of his paranoia, did respond to increased dose of Seroquel 50 mg at bedtime, was able to decrease that back down to 25 mg. He was having some daytime behavioral issues, trial 12.5 mg of Seroquel with increased sedation, this was discontinued after 2 days. We will continue to monitor behavior, and titrate accordingly. 3. Generalized anxiety disorder. Will schedule clonazepam one half 0.5 tab first thing in the a.m., 1400, and have available for nighttime dosing if needed. Attempting to keep benzodiazepine load down, as patient has had falls and remains high fall risk. Counseling provided regarding balancing benefits of burdens of medication management with both adult family home compensation specialist Awilda and . 4. Advanced care planning. Patient continues to have slow decline, will continue to monitor, goals remain to avoid hospitalization and focus on comfort only. feels patient is ready to go, both patient and will be quite discouraged if this were drawn out. We will continue to monitor and provide appropriate support and transition to hospice if indicated. Time Spent: 85 minutes is getting 50% of the stenting counseling, coordination of care with adult family home compensation specialist and , and anticipatory guidance.
== END 2018-10-11 13:16 | disposition home or self-care (01) ==
LOC: PC 13:15
PROVIDERS: ATTEND Nurse Practitioner Adult Health
DX: Z51.5 Encounter for palliative care (principal); R62.7 Adult failure to thrive; E86.0 Dehydration; R11.0 Nausea; R53.1 Weakness; F01.51 Vascular dementia, unspecified severity, with behavioral disturbance; F41.1 Generalized anxiety disorder; R32 Unspecified urinary incontinence; L89.91 Pressure ulcer of unspecified site, stage 1; Z66 Do not resuscitate; Z79.899 Other long term (current) drug therapy; Z91.81 History of falling
CPT/HCPCS: 99349

== ENCOUNTER 2018-10-11 13:30 | Outpatient (CLI) | payer MEDICARE ==
[2018-10-11 14:51] LABS: BILIRUBIN,URINE NEGATIVE (NEGATIVE); CLARITY,URINE CLEAR (CLEAR); GLUCOSE, URINE (UA) NEGATIVE (NEGATIVE); KETONES,URINE (UA) NEGATIVE (NEGATIVE); LEUKOCYTE ESTERASE, URINE NEGATIVE (NEGATIVE); NITRITE,URINE NEGATIVE (NEGATIVE); OCCULT BLOOD,URINE NEGATIVE (NEGATIVE); PROTEIN,URINE TRACE mg/dL (NEGATIVE); UROBILINOGEN,URINE 1 (NORMAL) E.U./dL (NORMAL)
== END 2018-10-11 23:59 | disposition home or self-care (01) ==
LOC: LAB.R 13:30
PROVIDERS: ATTEND Nurse Practitioner Adult Health
DX: R30.0 Dysuria (principal)
CPT/HCPCS: 81001; 81003; 87086

== ENCOUNTER 2018-10-23 12:30 | Outpatient (CLI) | payer MEDICARE ==
--- NOTE | 2018-10-23 19:50 | CONSULTATION NOTE ---
Palliative Care Follow Up - Referral Referring Provider: Dr. Charly Stanley Time of Visit: 1121-3786 Referral setting: Home Referral Reason: Failure to Thrive/Anxiety - Information Sources Records reviewed: Previous records reviewed History/Review of Systems obtained from: Patient, Family (input from from call), Caregiver (Awilda/Mare[facility] cgs) Exam limitations: Clinical condition (patient very weak; poor STM) - History of Present Illness Update Brief HPI Update: This is an 88-year-old gentleman who I have been seen since April 2016. Originally with significant deterioration secondary to his vascular dementia, he had had 3 to 6-month time of cognitive decline, including sundowning, and escalation of anxiety. This culminated in a ED visit with almost "a psychotic break". At that point time he had been placed at home place with the initiation of palliative care. Patient though he does have vascular dementia, and is easily confused was actually titrated off of most of his medications, improved fairly dramatically, and was transitioned to [facility]'s adult family home. He went on to improve, with increased functional status, able to participate in physical therapy, time together, and took small breaks to his 's home. She had originally placed him as it was difficult for caregiving support and patient's escalating needs and behaviors. Patient continued to do fairly well, with a peak weight of 162.2 in September 2017. And though has had intermittent episodes of bronchitis, abdominal discomfort, has remained fairly stable until his last couple months. Patient did present on August 192018 with influenza A. Another resident had been confirmed with the swab and hospitalized, and he was symptomatic within a few days. He recovered but was still quite weak, and then his was on a vacation for a few weeks, patient did become severely constipated and presented with abdominal pain to the ED on 09/17. His weight at that point in time was 140, a CT scan showed a rectum distended with 7 cm of stool, and confirmed as patient does have a fairly large right inguinal hernia 7 x 10 cm, as well as a left colon hernia in the left lower quadrant of 3 x 4 cm. In addressing his constipation with aggressive bowel program, patient continued to do poorly, though we did get his bowels moving on a regular basis. After this he was too weak, to return back home for his regular activities. This is caused some increased existential distress and exacerbation of his anxiety. Patient has de clined, does appear quite cachectic. Unable to weigh at this point in time, but does appear to have lost most likely 10 to 15 pounds over the last couple weeks, such that his pressure in his abdomen and weight have decreased the size of his hernia as well. He is having regular soft bowel movements, is very weak in the context is only able to shuffle with his walker for a few feet, and has improved from almost a maximum 2 person assist for transfers to a 1 person but is still quite shaky, has increased tremors, with his escalating anxiety have needed to increase his clonazepam to half tab of 0.25 mg a.m., 1400, and 1 tab at bedtime. This seems to have addressed some of the issues, the patient does present with paranoia, some fairly significant distortions, and remains quite anxious.He is eating still some, poor fluid intake, his biggest distress is actually his incontinence. Patient at baseline is quite perseverative about voiding, has spent most of his time going back and forth and back and forth to the bathroom particularly at Awilda's, this has been the baseline since I met him, though improved some with initiation of Flomax. This is been a bone of contention between the 2 of them, and outpatient being asked to use his diapers to go and, and is found this somewhat distressing. He has underlying vascular dementia, but for the most part can carry on a conversation, though today is quite weak, easily confused, and drifts off to sleep quite easily. He is expressing his wishes to have this over with, "I am ready to go", denies that he has any fears around dying. Patient has in the past been very difficult to engage as he has severe anxiety as well as his underlying general anxiety disorder. He also is perseverating regarding his relationship with Awilda today, uses language he is "at war" with her. In teasing this out, it is mostly around the fact he is not able to ambulate into the bathroom, and she has him use his briefs. 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 He did have an angioplasty that failed with follow-up laser treatment. He does have known atrial fib not an anticoagulant secondary to fall risk. He does have type 2 diabetes, though this is been diet controlled. Social History - Living Situation Living arrangement: Adult family home Support System: Patient has been living at [facility] [place] for about a year and a half, his has brought him home for part of the week until his most recent deterioration. Patient is retired from [employer], he is an avid liberal, and His continues to work. He does have intermittent delusions, and remains quite anxious about Hina going on with her life without him. He does not present with this perseverative thinking today. He very much loves to spend time with her, she oversees his care, and calls them several times a day. Medications/Allergies - Medications Home Medications: Ambulatory Orders Medication Instructions Recorded Confirmed QUEtiapine [SEROquel] 25 mg PO QPM 06/21/16 10/23/18 Tamsulosin [Flomax] 0.4 mg QPM 06/21/16 10/23/18 Cholecalciferol (Vitamin D3) 1,000 unit PO DAILY 02/09/17 10/23/18 [Vitamin D3] Polyethylene Glycol 3350 [Miralax] 8.5 gm PO . 2 DAYS PRN 02/09/17 10/23/18 Ondansetron HCl [Zofran] 4 mg PO Q6HR PRN 06/26/17 10/23/18 Nystatin [Nystop] 1 applic TOP DAILY 08/07/17 10/23/18 Pantoprazole [Protonix] 40 mg PO ACHS 11/30/17 10/23/18 Aspirin 81 mg PO DAILY 03/28/18 10/23/18 Venlafaxine ER [Effexor ER] 37.5 mg PO DAILY 05/17/18 10/23/18 clonazePAM [Clonazepam] 0.25 mg PO .0900 & 1400 PRN MDD 09/25/18 10/23/18 may have prn in night - Allergies Allergies/Adverse Reactions: Allergies Allergy/AdvReac Type Severity Reaction Status Date / Time No Known Drug Allergies Allergy Verified 09/17/18 13:34 Review of Systems - Constitutional Constitutional: reports: Fatigue, Weight loss. denies: Fever, Chills - Eyes Eyes: reports: Vision loss, Corrective lenses - Ears, Nose & Throat Ears, Nose & Throat: reports: Hearing loss (mild), Hoarseness, Dry mouth - Cardiovascular Cardiovascular: reports: Irregular heart rate, Decr. exercise tolerance - Respiratory Respiratory: denies: SOB at rest, SOB with exertion - Gastrointestinal Gastrointestinal: reports: Nausea (intermittent), Reflux/heartburn, Early satiety - Genitourinary Genitourinary: reports: Incontinence - Musculoskeletal Musculoskeletal: reports: Stiffness, Muscle weakness, Assistive devices (uses walker; ambulates few steps) - Integumentary Integumentary: reports: Dryness - Neurological Neurological: reports: General weakness, Memory problems, Abnormal gait, Other (tremors) - Psychiatric Psychiatric: reports: Depression, Anxiety, Delusions Physical Exam - Vital Signs Temperature: 97.2 C Pulse Rate: 88 Respiratory Rate: 18 O2 Saturation: 97 Blood Pressure: 132/74 - Physical Exam General Appearance: positive: Moderate distress, Anxious, Lethargic Eyes Bilateral: positive: Normal inspection ENT: positive: Other (patient with difficulty talking; hoarseness; "runs out of breath" when trying to converse) Neck: positive: No JVD, Trachea midline, Other (right sided clavicle; prominent nonpainful) Cardiovascular: positive: Irregular, Systolic murmur Respiratory: positive: No respiratory distress, Diminished in bases. negative: Wheezes, Rales, Rhonchi Abdomen: positive: Soft, Tenderness (LLQ with palpation; hernia), Guarding, Other (inguinal hernia; swelling has improved) Skin: positive: Pallor, Dryness, Rash (groin improved). negative: Pressure wound Extremities: positive: No pedal edema Neurologic/Psychiatric: positive: Disoriented to time, Weakness, Depressed mood/affect, Flat affect, Other (weak voice) Palliative Care - POLST Patient has POLST: Yes POLST Status: DNR, Comfort Measures Pain: No pain Tiredness/Fatigue: Severe (7-10) Drowsiness/Sedation: Moderate (4-6) Nausea: Mild (1-3) Depression: Severe (7-10) Anxiety: Severe (7-10), Comment (Patient has been trialed to the last couple years on several different antidepressants, including mirtazapine, sertraline, has done the best on Effexor at this point in time. Seems to just both his anxiety and his depression.) Dyspnea: None Anorexia: Mild (1-3), Weight loss Sleep: Variable sleep pattern Constipation: Yes, Managed (soft brown stool during visit; incontinent) Feelings of wellbeing/Perceived Quality of Life: Poor, Worsening Performance Status: Patient at baseline prior to influenza, was ambulatory, able to toilet himself on a regular basis. He did spend quite a bit of time going back and forth to the bathroom. Able to get from sit to stand. He also was participating in physical therapy once a week. Currently he is needing a assist from sitting to standing, able to tolerate standing only for a short period of time, shuffled gait very slow. Is mostly spending his time in the bed in the recliner, I would put him at a PPS of 40%. He is able to self feed, no signs or symptoms of choking. - Palliative Care Discussion: Patient quite weak, easily drifts off to sleep. Difficult to engage today. Jacek spence with very little insight into his current decline, though he does repeat "I just want to ". Denies any distress, pain, or uncontrolled symptoms. He is quite fatigued, continues appear quite cachectic, with upper and lower extremity wasting as well as temporal wasting. I did introduce to him given his ongoing decline, and his statements about "ready to go". That I was going to transition him to the hospice team. Did a brief simple overview of support for him and this to stressful time, and that he would be getting regular visits. Patient at baseline is a very social person, and is quite lonely and isolated at [facility]. Report from the palliative care psychiatric social worker, for counseling related to his anxiety. Spoke with at length, regarding goals of care. She very much wants his existential distress and anxiety addressed. His sons are coming to say their goodbyes, she is encouraged anybody else as far as extended friends and family that he is transition to hospice. She would prefer he be sedated and comfortable versus anxious and distressed. He does feel at times she is at odds with adult family home midwife and birth center owner and these goals. Feels patient is ready to go, and should be able to transition with dignity. Patient does have a MAK ST in place, does have D POA, and have received hospice medical billing associate regarding patient's status and declined with confirmation of acceptance. Patient to be admitted tomorrow afternoon. Very much would like to be at home for his end-of-life, but given patient's increased care needs, difficulty finding 24-hour caregivers, and previous experience of having at home with , she would like to support him for his end of life at the adult family home. She is continuing to work, his care needs are fairly high, and despite a complicated relationship with Awilda, he has been receiving safe care there. Impression and Recommendations - Palliative Care Impression: This is an 88-year-old gentleman who presents with failure to thrive, protein calorie malnutrition with weight loss. Cognitive and functional decline, increasing symptom burden of fatigue, anxiety, and drowsiness. Palliative care to transition patient over to hospice team, goals of care remain to focus on comfort, relief of existential distress and anxiety, and a peaceful and comfortable . Recommendations/Counseling Done: 1. Failure to thrive. This is multifactorial in origin, patient continues to be quite frail, with mild dehydration, he is eating some. He is sleeping more, he does appear quite cachectic with ongoing weight loss despite intake. Patient has not needed any further ondansetron, though nausea has been fluctuating complaint. 2. Dementia with behavioral disturbances patient has had fluctuating paranoia, perseveration, and anxiety. Currently his clonazepam dosing of 0.2 5/2 tab a.m., 1400, and 1 at night appear to be managing for the most part his behaviors. He is on the Seroquel as he has done best on this around his paranoia. 3. Generalized anxiety disorder. Using the effexor, Schedule clonazepam in. Have been trying to attempt to keep benzodiazepine load is down as he is done poorly in the past, will continue to monitor. Counseling provided regarding balancing benefits of burdens of medication management with both adult family home midwife and birth center owner Awilda and . Awilda is been the main 24/7 caregiver feels like the current regimen is managing behaviors at this point in time, as he is sleeping better through the night. 4. Advanced care planning. Patient remains quite frail, is not improving, patient's decline in acceptance and ready to go, will go ahead and initiate transition to hospice. Report given to hospice medical billing associate. Counseling provided to Brittany Henry regarding the hospice benefit both limitations and services. She will be available for admit tomorrow afternoon. George was introduced to hospice, unclear if patient will recall conversation, but did not seem distressed by conversation. Time Spent: The 5 minutes with greater than 50% of this done in counseling regarding symptom management, management of patient's anxiety and existential distress, coordination of care and transition to hospice as well as anticipatory guidance to both caregivers and .
== END 2018-10-23 12:31 | disposition home or self-care (01) ==
LOC: PC 12:30
PROVIDERS: ATTEND Nurse Practitioner Adult Health
DX: Z51.5 Encounter for palliative care (principal); R62.7 Adult failure to thrive; E46 Unspecified protein-calorie malnutrition; E86.0 Dehydration; I69.311 Memory deficit following cerebral infarction; F01.51 Vascular dementia, unspecified severity, with behavioral disturbance; F41.1 Generalized anxiety disorder; F32.9 Major depressive disorder, single episode, unspecified; K40.90 Unilateral inguinal hernia, without obstruction or gangrene, not specified as recurrent; K46.9 Unspecified abdominal hernia without obstruction or gangrene; R32 Unspecified urinary incontinence; R15.9 Full incontinence of feces; R53.1 Weakness; G14 Postpolio syndrome; I48.91 Unspecified atrial fibrillation; E11.9 Type 2 diabetes mellitus without complications; Z91.81 History of falling; Z87.09 Personal history of other diseases of the respiratory system; Z66 Do not resuscitate; Z79.899 Other long term (current) drug therapy
CPT/HCPCS: 99349